=== PATIENT | female | born 1975 | race American Indian/Alaskan Native ===

== ENCOUNTER 2017-01-17 21:38 | Inpatient (IN) | payer OTHER ==
[2017-01-17 23:07] LABS: Basophils % (Auto) 0.5 % (0.0-1.8); Eosinophils % (Auto) 2.9 % (0.0-4.3); Hematocrit 37.7 % (30.3-42.9); Mean Corpuscular HGB Conc 32 % (30-34); Mean Corpuscular Hemoglobin 30 pg (28-32); Mean Corpuscular Volume 94 fl (79-97); Platelet Count 257 K/mm3 (140-440); Red Blood Count 4.03 M/mm3 (3.65-5.03); Red Cell Distribution Width 17.2 % (13.2-15.2); White Blood Count 10.3 K/mm3 (4.5-11.0)
[2017-01-17] MEDS ORDERED: NACL 0.9% 1000 ML 1,000 ML ONE (23:14)
[2017-01-17] MEDS ORDERED: XYLOCAINE 1%/ EPI 1:100,000 INFILTRATI ONE (23:17)
[2017-01-17] MEDS ORDERED: ZOFRAN IV ONE (23:17)
[2017-01-17] MEDS ORDERED: DILAUDID IV ONE (23:17)
--- NOTE | 2017-01-17 23:22 | Emergency Department Report ---
HPI - General Chief Complaint: Chest Pain Time Seen by Provider: 01/17/17 23:10 - HPI HPI: Room 18 The patient is a 41-year-old female presenting with a chief complaint of chest pain and shortness of breath. The patient states yesterday she had the sudden onset of left chest pain and difficulty breathing. The patient decided today to come to the ED for evaluation. The patient had a similar episode one year ago when she had a spontaneous pneumothorax and was admitted to this Hospital Location: Left chest Duration: Constant since yesterday Quality: Pain Severity: Moderate Modifying factors: [see above] Context: [see above] Mode of transportation: [not driving] ED Past Medical Hx - Past Medical History Additional medical history: Spontaneous pneumothorax - Surgical History Past Surgical History?: No Additional Surgical History: Chest tube for spontaneous pneumothorax - Family History Family history: no significant - Social History Smoking Status: Former Smoker Substance Use Type: None - Medications Home Medications: Home Medications Medication Instructions Recorded Confirmed Last Taken Type No Known Home Medications [No 11/28/15 11/28/15 Unknown History Reported Home Medications] ED Review of Systems ROS: Stated complaint: CHEST PAIN Other details as noted in HPI Comment: All other systems reviewed and negative Constitutional: denies: chills, fever Eyes: denies: eye pain, eye discharge, vision change ENT: denies: ear pain, throat pain Respiratory: shortness of breath Cardiovascular: chest pain Endocrine: no symptoms reported Gastrointestinal: denies: abdominal pain, nausea, diarrhea Genitourinary: denies: urgency, dysuria, discharge Musculoskeletal: denies: back pain, joint swelling, arthralgia Skin: denies: rash, lesions Neurological: denies: headache, weakness, paresthesias Psychiatric: denies: anxiety, depression Hematological/Lymphatic: denies: easy bleeding, easy bruising Physical Exam - Physical Exam Vital Signs: Vital Signs 01/17/17 22:30 Temperature 98.1 F Pulse Rate 86 Respiratory 18 Rate Blood Pressure 107/65 O2 Sat by Pulse 100 Oximetry Physical Exam: GENERAL: The patient is well-developed well-nourished female lying on stretcher appearing to be in moderate discomfort. [] HEENT: Normocephalic. Atraumatic. Extraocular motions are intact. Patient has moist mucous membranes. NECK: Supple. Trachea midline CHEST/LUNGS: Clear to auscultation. HEART/CARDIOVASCULAR: Regular. There is no tachycardia. There is no gallop rub or murmur. ABDOMEN: Abdomen is soft, nontender. Patient has normal bowel sounds. There is no abdominal distention. SKIN: There is no rash. There is no edema. There is no diaphoresis. NEURO: The patient is awake, alert, and oriented. The patient is cooperative. The patient has normal speech MUSCULOSKELETAL: There is no evidence of acute injury. ED Course Vital Signs 01/17/17 22:30 Temperature 98.1 F Pulse Rate 86 Respiratory 18 Rate Blood Pressure 107/65 O2 Sat by Pulse 100 Oximetry - Chest Tube Chest Tube Location: forth interspace Size of Mexican Tube (cm): 8 (Heimlich) Chest Tube Procedure: betadine prep Anesthesia: 1% Lidocaine w/ Epi Volume Anesthetic (ccs): 12 [place] of Air [place]: Yes Number of Attempts: 1 Tube Sutured to Skin: Yes Post Procedure CXR?: Yes ED Medical Decision Making - Lab Data Result diagrams: 01/17/17 22:43 01/17/17 22:43 Laboratory Tests 01/17/17 01/17/17 22:43 22:43 WBC 10.3 RBC 4.03 Hgb 12.0 Hct 37.7 MCV 94 MCH 30 MCHC 32 RDW 17.2 H Plt Count 257 Lymph % (Auto) 19.3 Hyde % (Auto) 6.2 Eos % (Auto) 2.9 Baso % (Auto) 0.5 Lymph # 2.0 Hyde # 0.6 Eos # 0.3 Baso # 0.1 Seg Neutrophils % 71.1 H Seg Neutrophils # 7.3 Sodium 140 Potassium 3.6 Chloride 102.5 Carbon Dioxide 20 L Anion Gap 21 BUN 10 Creatinine 0.6 L Estimated GFR > 60 BUN/Creatinine Ratio 16.66 Glucose 82 Calcium 9.1 Troponin T < 0.010 - Radiology Data Radiology results: image reviewed (chest x-ray #1, chest x-ray #2) interpreted by me: Chest x-ray-large left pneumothorax Chest x-ray #2-Heimlich in place. Left Pneumothorax resolved/resolving - Differential Diagnosis spontaneous pneumothorax Critical care attestation.: If time is entered above; I have spent that time in minutes in the direct care of this critically ill patient, excluding procedure time. ED Disposition Clinical Impression: Spontaneous pneumothorax, Pneumothorax, left, Left sided chest pain Disposition: DC-[id number] OP ADMIT IP TO THIS HOSP Is pt being admited?: Yes Does the pt Need Aspirin: No Condition: Fair Instructions: Chest Pain (ED) Time of Disposition: 00:25 (hospitalist paged)
[2017-01-17 23:27] LABS: BUN/Creatinine Ratio 16.66; Blood Urea Nitrogen 10 mg/dL (7-17); Calcium 9.1 mg/dL (8.4-10.2); Carbon Dioxide 20 mmol/L (22-30); Glucose 82 mg/dL (65-100)
[2017-01-17 23:28] LABS: Anion Gap 21 mmol/L; Chloride 102.5 mmol/L (98-107); Potassium 3.6 mmol/L (3.6-5.0); Sodium 140 mmol/L (137-145)
[2017-01-17] MEDS ORDERED: VERSED IV ONE (23:47)
[2017-01-18] MEDS ORDERED: DILAUDID IV ONE (00:13)
[2017-01-18] MEDS ORDERED: BENADRYL IV PRN (00:23)
[2017-01-18] MEDS ORDERED: SUBLIMAZE IV PRN (00:23)
[2017-01-18] MEDS ORDERED: TORADOL IV PRN (00:23)
[2017-01-18] MEDS ORDERED: NACL 0.9% 1000 ML 1,000 ML IV ONE (01:00)
[2017-01-18] MEDS ORDERED: DULCOLAX PR PRN (01:39)
[2017-01-18] MEDS ORDERED: MILK OF MAGNESIA PO PRN (01:39)
[2017-01-18] MEDS ORDERED: TYLENOL PO PRN (01:39)
--- NOTE | 2017-01-18 01:39 | History and Physical Report ---
History of Present Illness Date of examination: 01/18/17 History of present illness: This is a 40-year-old woman with no medical history comes to the emergency room complaining of left-sided pleuritic chest pain for 2 days. She describes the pain as sharp, constant, intensity 10/10, no radiation, worse with movement, better with pain medication given in the emergency room. Also complaining of shortness of breath. She had a similar presentation a year ago with pneumothorax Review of systems Constitutional: no fever, no chills, no weight loss Ears, eyes, nose, mouth and throat: no nasal congestion, no nasal discharge, no sinus pressure, no vision change, no red eye. Neck: No neck pain or rigidity. Cardiovascular: no orthopnea, no palpitations, no leg swelling Respiratory: No cough, no congestion, no wheezing Gastrointestinal: abdominal pain, hematochezia, no nausea, no vomiting Genitourinary : no dysuria, frequency , no hematuria Musculoskeletal: no joint swelling or muscle ache Integumentary: no rash, no pruritis Neurological: no parathesias, no numbness, no focal weakness Endocrine: no cold or heat intolerance, no polyuria or polydipsia Hematologic/Lymphatic: no easy bruising, no easy bleeding, no gland swelling Allergic/Immunologic: no urticaria, no angioedema. PAST MEDICAL HISTORY: None PAST SURGICAL HISTORY: None SOCIAL HISTORY: Quit smoking no alcohol or drugs FAMILY HISTORY: Hypertension Medications and Allergies Allergies Allergy/AdvReac Type Severity Reaction Status Date / Time etomidate [From Amidate] AdvReac Anaphylaxis Verified 11/28/15 20:52 Home Medications Medication Instructions Recorded Confirmed Last Taken Type No Known Home Medications [No 11/28/15 11/28/15 Unknown History Reported Home Medications] Active Meds: Active Medications Diphenhydramine HCl (Benadryl) 50 mg IV ONCE PRN PRN Reason: Pain Fentanyl (Sublimaze) 100 mcg IV ONCE PRN PRN Reason: Pain Last Admin: 01/18/17 00:40 Dose: 100 mcg Ketorolac Tromethamine (Toradol) 30 mg IV ONCE PRN PRN Reason: Pain Stop: 01/23/17 00:22 Last Admin: 01/18/17 00:35 Dose: 30 mg Exam - Physical Exam Narrative exam: Gen. appearance: Patient lying in bed, no apparent distress HEENT: Normocephalic, atraumatic, pupils equally round and reactive to light, extraocular movement intact, and no sclericterus,. No JVD or thyromegaly or nodule,neck supple, no carotid bruit ,mucous membranes moist, no exudate or erythema Heart: S1, S2, regular rate and rhythm Lungs: Clear to auscultation bilaterally, breathing comfortable Abdomen: Positive bowel sounds, nontender, nondistended, no organomegaly Extremity: No edema, cyanosis, clubbing Skin: No rash, nodules, warm, dry Neuro: Oriented 3, cranial nerves II-12 intact, speech is fluent, motor and sensory intact - Constitutional Vitals: Temp Pulse Resp BP Pulse Ox 98.1 F 66 16 105/63 99 01/17/17 22:30 01/18/17 01:15 01/18/17 01:15 01/18/17 01:15 01/18/17 01:15 Results - Labs CBC & Chem 7: 01/17/17 22:43 01/17/17 22:43 Labs: Abnormal lab results 01/17/17 01/17/17 Range/Units 22:43 22:43 RDW 17.2 H (13.2-15.2) % Seg Neutrophils % 71.1 H (40.0-70.0) % Carbon Dioxide 20 L (22-30) mmol/L Creatinine 0.6 L (0.7-1.2) mg/dL Assessment and Plan Assessment Large left pneumothorax, status post chest tube placement Plan Admit to medicine Consult critical care start IV morphine and DVT prophylaxis
[2017-01-18] MEDS: MORPHINE IV PRN ×3 (04:05→13:57)
[2017-01-18] MEDS: ZOFRAN IV PRN ×2 (04:05→22:06)
--- NOTE | 2017-01-18 05:58 | Admit Criteria Form ---
<MARIAH MCRAE - Last Filed: 01/18/17 05:56> Admission Criteria Documentation: PNEUMOTHORAX Clinical Indications for Admission to Inpatient Care (Place 'X' for any and all applicable criteria): Admission to inpatient status for two mid-nights or more is indicated for ANY ONE of the following (1),(2): [ ]I. Pneumothorax caused by associated lung disease (eg, COPD, cystic fibrosis, lung cancer, AIDS)(6): [ ]II. Recurrent episode of pneumothorax9 [ ]III. Traumatic pneumothorax (10)(11)(12) [ ]IV. Tension pneumothorax [ ]V. Hypotension [ ]. Respiratory distress [ ]VII. Pneumothorax exacerbating significant comorbidity (eg, heart failure) [ X]VIII. Inpatient admission required rather than observation care (see Pneumothorax: Observation Care guideline as appropriate) because of 1 or more of the following (13)(14) [X ]1) Symptomatic pneumothorax (eg, dyspnea, Tachypnea ) insufficiently responsive to outpatient or observation care treatment (eg, needle aspiration) [ ]2) Infection identified (eg, pneumonia) that requires inpatient management [ ]3) Severe pain requiring acute inpatient management [ ]4) Supplemental oxygen or respiratory treatments for over 24 hours that are performable only in acute inpatient setting Other significant finding or clinical cond judged not to be within the scope of observation care [ ]5) Chest tube placement with active evacuation (eg, suction, drainage) [ ]6) Epidural analgesia [ ]7) Other condition, treatment, or monitoring requiring inpatient admission Extended stay beyond goal length of stay may be needed for (24) [ ]a) Comorbid pneumonia, or acute exacerbation of COPD [ ]b) Acute respiratory failure (eg, pulmonary collapse) [ ]c) Pneumothorax associated with trauma (eg, multiple fractured ribs) [ ]d) Persistent air leak(2)(5)(8)(30) [ ]e) Tension pneumothorax [ ]f) Pulmonary edema The original [email or web address] content created by [employer] has been revised. The portions of the content which have been revised are identified through the use of italic text or in bold, and [facility] has neither reviewed nor approved the modified material. All other unmodified content is copyright [employer] [facility]. Please see references footnoted in the original [employer] [facility] edition 2017 Admission Criteria Met: Yes <MILES COSBY - Last Filed: 01/19/17 06:08> Admission Criteria Documentation: [x] 7)Other condition, treatment, or monitoring requiring inpatient admission
[2017-01-18] MEDS ORDERED: MORPHINE IV ONE (06:25)
[2017-01-18] MEDS ORDERED: MORPHINE ONE (06:26)
--- NOTE | 2017-01-18 10:03 | XRay Report ---
ROUTINE CHEST, TWO VIEWS: HISTORY: chest pain. Compared to 12/01/15. A large left pneumothorax extubated at 50% is identified. This probably represents a tension pneumothorax. The right lung is clear. Normal heart and mediastinal structures. IMPRESSION: Large left pneumothorax. These findings were noted by the emergency department physician at 11:05 PM.
--- NOTE | 2017-01-18 10:04 | XRay Report ---
AP CHEST: HISTORY: Left pneumothorax, chest tube placement A left Heimlich chest tube has been inserted which terminates near the left apex. No residual left pneumothorax is detected. There is partial atelectasis in the left lower lobe and lingula, otherwise, the lungs are clear. Heart size is within normal limits. IMPRESSION: Left chest tube placement. No significant residual left pneumothorax is appreciated.
[2017-01-18] MEDS: LOVENOX SUB-Q SCH (10:12)
[2017-01-18] MEDS ORDERED: PERCOCET 5/325 PO PRN (15:48)
--- NOTE | 2017-01-18 16:36 | Event Note ---
Date: 01/18/17 pt seen and examined. Will continue current mx as dictated in H and P. will change pain meds to dilaudid and po percocet. pulmonary eval pending, repeat CXR.
[2017-01-18] MEDS: DILAUDID IV PRN (19:26)
--- NOTE | 2017-01-18 21:01 | Event Note ---
Date: 01/18/[address] LOVE Thank you for asking us to participate in the care of this patient. Full consultation follow. This is 41 year old female came to the emergency room with left sided chest pain, cough and shortness of breath. Patients chest xray showed large left Pneumothorax. Left chest tube inserted.Left lung is fully expanded. Patient resting on 2 litres O2.O2 saturation 97%. No acute respiratory distress. Patient has history of Pneumothorax left side one year ago. Patient smokes cigaretts since year 1999. According to the patient,she smokes less than half a pack. She says she still smoking now and then. Counselled her not to smoke.Denies alcohol or drug abuse. Works in [employer]. Not . No children. Allergic to etomidate. IMMPRESSION; 1. LARGE LEFT PNEUMOTHORAX. 2. S/P CHEST TUBE PLACEMENT 3. TOBACO USE DISORDER. PLAN; 1. CONTINUE LEFT CHEST TUBE WITH WALL SUCTION. 2. ALPHA 1 ANTITRYPSIN LEVEL 3. SINCE IT IS RECURRENT PNEUMOTHORAX RECOMMEND CATSCAN OF CHEST. 4. SINCEIT IS RECURRENT PNEUMOTHORAX, CONSULT THORACIC SURGERY. 5. CONTINUE O2 SUPPLEMENTATION. 6. ABGS ON o2.
--- NOTE | 2017-01-19 00:06 | XRay Report ---
FINAL REPORT PROCEDURE: Chest. TECHNIQUE: Portable AP view. HISTORY: Pneumothorax. COMPARISON: No prior studies are available for comparison. FINDINGS: The patient is rotated slightly to the right. The heart and mediastinum appear normal. The right lung is clear and well expanded. There is a small caliber thoracostomy tube on the left side that terminates near the lung apex. There is no visible pneumothorax. There is some streaky opacity at the left lung base which may represent subsegmental atelectasis. There are no definite pleural effusions. The soft tissues and regional skeleton are unremarkable. IMPRESSION: Left thoracostomy catheter without evidence of a pneumothorax. Probable subsegmental atelectasis in the left lung base.
[2017-01-19] MEDS: DILAUDID IV PRN ×3 (01:49→10:11)
[2017-01-19 05:51] LABS: Basophils % (Auto) 0.2 % (0.0-1.8); Eosinophils % (Auto) 2.1 % (0.0-4.3); Hematocrit 33.1 % (30.3-42.9); Hemoglobin 10.9 gm/dl (10.1-14.3); Mean Corpuscular HGB Conc 33 % (30-34); Mean Corpuscular Hemoglobin 29 pg (28-32); Mean Corpuscular Volume 90 fl (79-97); Platelet Count 229 K/mm3 (140-440); Red Blood Count 3.69 M/mm3 (3.65-5.03); Red Cell Distribution Width 16.2 % (13.2-15.2); White Blood Count 8.8 K/mm3 (4.5-11.0)
[2017-01-19 06:11] LABS: Anion Gap 15 mmol/L; Blood Urea Nitrogen 5 mg/dL (7-17); Calcium 8.3 mg/dL (8.4-10.2); Carbon Dioxide 25 mmol/L (22-30); Chloride 102.5 mmol/L (98-107); Glucose 100 mg/dL (65-100); Potassium 3.7 mmol/L (3.6-5.0); Sodium 139 mmol/L (137-145)
[2017-01-19] MEDS: ZOFRAN IV PRN ×3 (07:03→20:35)
[2017-01-19] MEDS: LOVENOX SUB-Q SCH (10:11)
--- NOTE | 2017-01-19 13:20 | Progress Note ---
Assessment and Plan This is 41 year old female came to the emergency room with left sided chest pain, cough and shortness of breath. Patients chest xray showed large left Pneumothorax. Left chest tube inserted.Left lung is now fully expanded. LARGE LEFT PNEUMOTHORAX. - s/p chest tube placement with wall suction - ordered alpha 1 antitrypsin level - CT chest ordered, CT surgery consult on Friday TOBACO USE DISORDER. - counselled for cessation Subjective Date of service: 01/19/17 Interval history: Pt seen and examined c/o pain at the chest tube site Objective - Constitutional Vitals: Vital Signs - 12hr 01/19/17 01/19/17 01/19/17 05:57 08:17 09:08 Temperature 99.1 F 98.7 F Pulse Rate 62 64 73 Respiratory 20 16 Rate Blood Pressure 101/57 118/61 O2 Sat by Pulse 97 97 Oximetry 01/19/17 10:11 Temperature Pulse Rate Respiratory 22 Rate Blood Pressure O2 Sat by Pulse Oximetry General appearance: Present: mild distress, well-nourished - EENT Eyes: PERRL, EOM intact ENT: hearing intact, clear oral mucosa Ears: bilateral: normal - Neck Neck: supple, normal ROM - Respiratory Respiratory effort: normal Respiratory: bilateral: CTA (left chest tube on place) - Cardiovascular Rhythm: regular Heart Sounds: Present: S1 & S2. Absent: gallop, rub Extremities: pulses intact, No edema, normal color, Full ROM - Gastrointestinal General gastrointestinal: Present: soft, non-tender, non-distended, normal bowel sounds - Integumentary Integumentary: clear, warm, dry - Musculoskeletal Musculoskeletal: 1, strength equal bilaterally - Neurologic Neurologic: moves all extremities - Psychiatric Psychiatric: memory intact, appropriate mood/affect, intact judgment & insight - Labs CBC & Chem 7: 01/19/17 04:18 01/19/17 04:18 Labs: Abnormal lab results 01/19/17 01/19/17 Range/Units 04:18 04:18 RDW 16.2 H (13.2-15.2) % Seg Neutrophils % 77.7 H (40.0-70.0) % BUN 5 L (7-17) mg/dL Creatinine 0.5 L (0.7-1.2) mg/dL Calcium 8.3 L (8.4-10.2) mg/dL
[2017-01-19] MEDS: MORPHINE IV PRN ×3 (14:23→20:35)
[2017-01-19] MEDS ORDERED: NACL ONE (15:06)
--- NOTE | 2017-01-19 17:57 | Cat Scan Report ---
FINAL REPORT PROCEDURE: CT CHEST W CON TECHNIQUE: Computerized axial tomography of the chest was performed during the IV injection of iodinated nonionic contrast. HISTORY: pneumothorax COMPARISON: No prior studies are available for comparison. TECHNICAL QUALITY: Satisfactory. FINDINGS: Pulmonary outflow tract, right and left main pulmonary arteries and their proximal branches: No focal abnormalities are seen. Pericardium: No evidence of pericardial effusion. Thoracic aorta: No evidence of aneurysmal dilatation or dissection. Coronary arteries: Are unremarkable. Mediastinum and hilar regions: Nonspecific subcentimeter lymph nodes are visualized. No pathologically enlarged lymph nodes or masses are identified. There is a 1.6 x 2.2 centimeter heterogeneous low-density nodule in the left lobe of the thyroid gland posteriorly. Well-defined low-density nodules seen in the right lobe of the thyroid gland measuring 6 millimeters. Lung Argueta: Small caliber left chest tube is in place directed superiorly. There is no pneumothorax. Small amount of linear atelectasis present in both bases. Mild emphysematous changes are visualized bilaterally. Upper abdomen: No acute bony abnormalities are identified. There is a small amount of subcutaneous emphysema along the left lateral chest wall laterally and posteriorly. IMPRESSION: Small caliber left chest tube in place directed superiorly laterally. No evidence of pneumothorax. Small amount of subcutaneous emphysema is present. Small amount of linear atelectasis seen in both bases. Mild emphysematous changes are visualized bilaterally.
[2017-01-19 21:02] LABS: ISTAT Base Excess 6; ISTAT HCO3 30.3; ISTAT PCO2 44.3 (35-45); ISTAT PH 7.443 (7.35-7.45); ISTAT PO2 145 (80-105); ISTAT SO2 99; ISTAT TCO2 32
[2017-01-19] MEDS ORDERED: BENADRYL IV ONE (22:55)
--- NOTE | 2017-01-19 23:12 | Progress Note ---
Assessment and Plan Patient alert, awake. Resting on 3 litres O2.O2 saturation 100%. No complaint of shortness of breath. Complaining pain at chest tube insertion site. - Patient Problems (1) Left sided chest pain Current Visit: Yes Status: Acute Plan to address problem: Likly from chest tube insertion site at this time. (2) Pneumothorax, left Current Visit: Yes Status: Acute Plan to address problem: S/P Left chest tube placement and expansion of left lung. Recurrent pneumothorax. Recommend to consult thoracic surgery. (3) S/P chest tube placement Current Visit: No Status: Acute Plan to address problem: SiP right chest tube placement. CT of chest reported complete expansion of left lung. Subjective Date of service: 01/19/17 Interval history: Patient alert, awake. Resting on 3 litres O2.O2 saturation 100%. No complaint of shortness of breath. Complaining pain at chest tube insertion site. Objective Vital Signs - 12hr 01/19/17 01/19/17 01/19/17 13:30 14:23 17:13 Temperature 98.2 F Pulse Rate 71 Respiratory 18 22 20 Rate Blood Pressure 131/66 O2 Sat by Pulse 100 Oximetry 01/19/17 01/19/17 01/19/17 20:30 20:36 22:00 Temperature 98.1 F Pulse Rate 76 Respiratory 16 Rate Blood Pressure 116/69 O2 Sat by Pulse 100 100 96 Oximetry Constitutional: no acute distress, alert Eyes: non-icteric ENT: oropharynx moist Neck: supple, no lymphadenopathy Ascultation: Bilateral: clear Cardiovascular: regular rate and rhythm Gastrointestinal: normoactive bowel sounds, soft, non-tender Integumentary: normal Extremities: no cyanosis, no edema Neurologic: normal mental status, non-focal exam, pupils equal and round, CN II- XII normal Psychiatric: mood appropriate CBC and BMP: 01/19/17 04:18 01/19/17 04:18 ABG, PT/INR, D-dimer: ABG POC ABG pH 7.443 (7.35-7.45) 01/19/17 20:56 POC ABG pCO2 44.3 (35-45) 01/19/17 20:56 POC ABG pO2 145 (80-105) H 01/19/17 20:56 POC ABG HCO3 30.3 01/19/17 20:56 POC ABG Total CO2 32 01/19/17 20:56 POC ABG O2 Sat 99 01/19/17 20:56 Abnormal lab findings: Abnormal Labs 01/19/17 01/19/17 01/19/17 04:18 04:18 20:56 RDW 16.2 H Seg Neutrophils % 77.7 H POC ABG pO2 145 H BUN 5 L Creatinine 0.5 L Calcium 8.[address] scan - chest: report reviewed (Small caliber chest tube present on left side. No pneumothorax. Small S/C emphysema.)
[2017-01-20] MEDS: MORPHINE IV PRN ×5 (01:36→21:36)
[2017-01-20] MEDS: LOVENOX SUB-Q SCH (10:55)
--- NOTE | 2017-01-20 12:55 | Progress Note ---
Assessment and Plan This is 41 year old female came to the emergency room with left sided chest pain, cough and shortness of breath. Patients chest xray showed large left Pneumothorax. Left chest tube inserted. Left lung is now fully expanded. LARGE LEFT PNEUMOTHORAX. - s/p chest tube placement with wall suction - ordered alpha 1 antitrypsin level - CT chest showed no pneumothorax, CT surgery consulted - OR in am for left VATS,wedge resections and pleurectomy by CT surgery TOBACO USE DISORDER. - counselled for cessation Thyroid nodule - normal T4, TSH - nodules are stable since 2016 - will need outpt f/u DVT Px - SCD on place Subjective Date of service: 01/20/17 Interval history: Pt seen and examined c/o pain at the chest tube site Objective - Exam Narrative Exam: General appearance: Present: mild distress, well-nourished - EENT Eyes: PERRL, EOM intact ENT: hearing intact, clear oral mucosa Ears: bilateral: normal - Neck Neck: supple, normal ROM - Respiratory Respiratory effort: normal Respiratory: bilateral: CTA (left chest tube on place) - Cardiovascular Rhythm: regular Heart Sounds: Present: S1 & S2. Absent: gallop, rub Extremities: pulses intact, No edema, normal color, Full ROM - Gastrointestinal General gastrointestinal: Present: soft, non-tender, non-distended, normal bowel sounds - Integumentary Integumentary: clear, warm, dry - Musculoskeletal Musculoskeletal: 1, strength equal bilaterally - Neurologic Neurologic: moves all extremities - Psychiatric Psychiatric: memory intact, appropriate mood/affect, intact judgment & insight - Constitutional Vitals: Vital Signs - 12hr 01/20/17 01/20/17 01/20/17 04:15 08:00 09:44 Temperature 98.0 F 98.3 F Pulse Rate 70 59 L Respiratory 18 18 Rate Blood Pressure 152/81 114/66 O2 Sat by Pulse 100 99 99 Oximetry 01/20/17 01/20/17 09:46 12:38 Temperature Pulse Rate 59 L Respiratory 22 Rate Blood Pressure O2 Sat by Pulse Oximetry - Labs CBC & Chem 7: 01/19/17 04:18 01/19/17 04:18 Labs: Abnormal lab results 01/19/17 Range/Units 20:56 POC ABG pO2 145 H (80-105)
--- NOTE | 2017-01-20 13:53 | Consultation ---
History of Present Illness Consult date: 01/20/17 Reason for consult: other (recurrent left pneumothorax) Chief complaint: chest pain and shortness of breath. - History of present illness History of present illness: 41 year old female ex smoker with second spontaneous PTX on left side, initially treated with left CT one year ago and managed conservatively, did well and returns with left PTX. Past History Past Medical History: No medical history Past Surgical History: Other (hx of left chest tube.) Social history: smoking (quit smoking one year ago) Family history: no significant family history Medications and Allergies Allergies Allergy/AdvReac Type Severity Reaction Status Date / Time etomidate [From Amidate] AdvReac Anaphylaxis Verified 11/28/15 20:52 Home Medications Medication Instructions Recorded Confirmed Last Taken Type No Known Home Medications [No 11/28/15 01/19/17 Unknown History Reported Home Medications] Active Meds: Active Medications Acetaminophen (Tylenol) 650 mg PO Q4H PRN PRN Reason: Pain MILD(1-3)/Fever >100.5/PURI Bisacodyl (Dulcolax) 10 mg MA QDAY PRN PRN Reason: Constipation unrelieved by MOM Diphenhydramine HCl (Benadryl) 25 mg IV Q8H PRN PRN Reason: Itching Enoxaparin Sodium (Lovenox) 40 mg SUB-Q QDAY SHAILA Last Admin: 01/20/17 10:55 Dose: 40 mg Magnesium Hydroxide (Milk Of Magnesia) 30 ml PO Q4H PRN PRN Reason: Constipation Morphine Sulfate (Morphine) 2 mg IV Q3H PRN PRN Reason: Pain, Moderate (4-6) Last Admin: 01/20/17 12:38 Dose: 2 mg Ondansetron HCl (Zofran) 4 mg IV Q8H PRN PRN Reason: N/V unrelieved by Reglan Last Admin: 01/19/17 20:35 Dose: 4 mg Tramadol HCl (Ultram) 50 mg PO Q6H PRN PRN Reason: Pain, Moderate (4-6) Review of Systems - Constitutional other (shortness of breat and chest pain) Exam Vital Signs Temp Pulse Resp BP Pulse Ox 98.1 F 86 18 107/65 100 01/17/17 22:30 01/17/17 22:30 01/17/17 22:30 01/17/17 22:30 01/17/17 22:30 - General physical appearance Positive: no distress - Eyes Positive: PERRL, normal occular movement - ENT Positive: normal pinna, normal nares, normal mucosa, no hearing loss, no congestion - Neck Positive: no masses, no bruits, trachea midline, no venous distension - Respiratory Positive: normal expansion, normal respiratory effort, clear to auscultation, other (Heimlich CT in place left chest.) - Cardiovascular Rhythm: regular - Extremities Extremities: no ischemia Peripheral Pulses: within normal limits - Breasts Breasts: deferred - Abdomen Abdomen: Present: soft, bowel sounds normal. Absent: tender, distended - Neurologic Neurologic: alert and oriented to time, place and person, motor strength and sensation are grossly intact - Musculoskeletal normal gait - Psychiatric Psychiatric: appropriate mood/affect, intact judgment & insight Results - Labs 01/19/17 04:18 01/19/17 04:18 Abnormal lab results 01/19/17 Range/Units 20:56 POC ABG pO2 145 H (80-105) Assessment and Plan Second spontaneous PTX left chest, Heimlich CT in place, will take to OR in am for left VATS,wedge resections and pleurectomy.
[2017-01-20] MEDS ORDERED: ANCEF/STERILE WATER 2 GM/20 ML IV NR (14:00)
[2017-01-20] MEDS: ULTRAM PO PRN ×2 (14:00→20:26)
--- NOTE | 2017-01-20 15:59 | Anesthesia Consultation ---
Anesthesia Consult and Med Hx Date of service: 01/20/17 - Airway Anesthetic Teeth Evaluation: Good (some missing teeth) ROM Head & Neck: Adequate Mental/Hyoid Distance: Adequate Mallampati Class: Class II Intubation Access Assessment: Probably Good - Pre-Operative Health Status ASA Pre-Surgery Classification: ASA2 Proposed Anesthetic Plan: General (double lumen tube) - Pulmonary Hx Smoking: Yes (06/26 p/d x 10 years) Hx Respiratory Symptoms: Yes (h/o left spontaneous pneumothorax 16', CT in place ) - Central Nervous System Hx Psychiatric Problems: No
--- NOTE | 2017-01-20 19:17 | Progress Note ---
Assessment and Plan Patient alert, awake. Resting on 3 litres O2.O2 saturation 97%. No complaint of shortness of breath. Complaining slight pain at chest tube insertion site. Patient scheduled for VATs and pleurectomy by Dr Giron tomorrow. - Patient Problems (1) Left sided chest pain Current Visit: Yes Status: Acute Plan to address problem: Likly from chest tube insertion site at this time. (2) Pneumothorax, left Current Visit: Yes Status: Acute Plan to address problem: S/P Left chest tube placement and expansion of left lung. Recurrent pneumothorax. Thoracic surgery consulted.. (3) S/P chest tube placement Current Visit: No Status: Acute Plan to address problem: SiP right chest tube placement. CT of chest reported complete expansion of left lung. Subjective Date of service: 01/20/17 Interval history: Patient alert, awake. Resting on 3 litres O2.O2 saturation 97%. No complaint of shortness of breath. Complaining slight pain at chest tube insertion site. Patient going for VATS and Pleurectomy by Dr. Giron tomorrow. Objective Vital Signs - 12hr 01/20/17 01/20/17 01/20/17 08:00 09:44 09:46 Temperature 98.3 F Pulse Rate 59 L 59 L Respiratory 18 Rate Blood Pressure 114/66 O2 Sat by Pulse 99 99 Oximetry 01/20/17 01/20/17 01/20/17 10:00 12:00 12:38 Temperature 98.2 F Pulse Rate 68 Respiratory 22 18 22 Rate Blood Pressure 125/73 O2 Sat by Pulse 98 98 Oximetry 01/20/17 01/20/17 01/20/17 14:00 17:00 17:09 Temperature 98.0 F Pulse Rate 63 Respiratory 20 18 20 Rate Blood Pressure 114/70 O2 Sat by Pulse 97 Oximetry Constitutional: no acute distress, alert Eyes: non-icteric ENT: oropharynx moist Neck: supple, no lymphadenopathy Ascultation: Bilateral: clear Cardiovascular: regular rate and rhythm Gastrointestinal: normoactive bowel sounds, soft, non-tender Integumentary: normal Extremities: no cyanosis, no edema Neurologic: normal mental status, non-focal exam, pupils equal and round, CN II- XII normal Psychiatric: mood appropriate CBC and BMP: 01/19/17 04:18 01/19/17 04:18 ABG, PT/INR, D-dimer: ABG POC ABG pH 7.443 (7.35-7.45) 01/19/17 20:56 POC ABG pCO2 44.3 (35-45) 01/19/17 20:56 POC ABG pO2 145 (80-105) H 01/19/17 20:56 POC ABG HCO3 30.3 01/19/17 20:56 POC ABG Total CO2 32 01/19/17 20:56 POC ABG O2 Sat 99 01/19/17 20:56 Abnormal lab findings: Abnormal Labs 01/19/17 01/19/17 01/19/17 04:18 04:18 20:56 RDW 16.2 H Seg Neutrophils % 77.7 H POC ABG pO2 145 H BUN 5 L Creatinine 0.5 L Calcium 8.3 L
[2017-01-21] MEDS: MORPHINE IV PRN ×4 (01:57→22:36)
[2017-01-21 05:34] LABS: Basophils % (Auto) 0.6 % (0.0-1.8); Eosinophils % (Auto) 3.9 % (0.0-4.3); Hematocrit 31.9 % (30.3-42.9); Hemoglobin 10.6 gm/dl (10.1-14.3); Mean Corpuscular HGB Conc 33 % (30-34); Mean Corpuscular Hemoglobin 30 pg (28-32); Mean Corpuscular Volume 90 fl (79-97); Platelet Count 237 K/mm3 (140-440); Red Blood Count 3.56 M/mm3 (3.65-5.03); Red Cell Distribution Width 15.8 % (13.2-15.2)
[2017-01-21 05:59] LABS: Anion Gap 18 mmol/L; Blood Urea Nitrogen 6 mg/dL (7-17); Calcium 8.4 mg/dL (8.4-10.2); Carbon Dioxide 24 mmol/L (22-30); Chloride 100.8 mmol/L (98-107); Glucose 76 mg/dL (65-100); Potassium 3.5 mmol/L (3.6-5.0); Sodium 139 mmol/L (137-145)
[2017-01-21] MEDS ORDERED: VERSED IV NR (07:00)
[2017-01-21] MEDS ORDERED: PEPCID IV NR (07:00)
[2017-01-21] MEDS: KCL 10MEQ/100ML 10 MEQ/100 ML BAG IV SCH ×2 (10:54→11:00)
[2017-01-21] MEDS ORDERED: MARCAINE 0.5% INFILTRATI ONE (10:55)
[2017-01-21] MEDS ORDERED: NACL 0.9% IR ONE ×2 (10:56)
[2017-01-21] MEDS ORDERED: XYLOCAINE 1% 20 mL INFILTRATI ONE (10:56)
[2017-01-21] MEDS: LOVENOX SUB-Q SCH (11:24)
[2017-01-21] MEDS ORDERED: ZOFRAN ONE ×2 (12:00→13:33)
[2017-01-21] MEDS ORDERED: NEO SYNEPHRINE/NS Syringe(OR USE) IV ONE (12:00)
[2017-01-21] MEDS ORDERED: DIPRIVAN 10 MG/ML IV ONE (12:21)
[2017-01-21] MEDS ORDERED: XYLOCAINE MPF 2% ONE (12:22)
[2017-01-21] MEDS ORDERED: LACTATED RINGERS 1,000 ML ONE (12:22)
[2017-01-21] MEDS ORDERED: ZEMURON IV ONE (12:22)
[2017-01-21] MEDS ORDERED: SUBLIMAZE ONE (12:24)
[2017-01-21] MEDS: LACTATED RINGERS 1,000 ML IV SCH ×2 (12:25→18:16)
[2017-01-21] MEDS ORDERED: ANCEF/STERILE WATER 2 GM/20 ML IV NR (13:00)
[2017-01-21] MEDS ORDERED: XYLOCAINE 1% 20 mL ONE (13:06)
[2017-01-21] MEDS ORDERED: MARCAINE 0.5% 30 ML INFILTRATI ONE (13:06)
[2017-01-21] MEDS ORDERED: DECADRON ONE (13:33)
[2017-01-21] MEDS ORDERED: ROBINUL ONE ×2 (13:33)
[2017-01-21] MEDS ORDERED: BLOXIVERZ ONE (13:33)
[2017-01-21] MEDS ORDERED: GELFOAM TP ONE ×2 (14:02→14:07)
--- NOTE | 2017-01-21 14:21 | Progress Note ---
Assessment and Plan Assessment and plan: Patient is a 41-year-old woman history of hypothyroidism, thyroid nodule since 2016 and prior pneumothorax a year ago (unknown reason per patient) who presents with left chest pains. Chest x-ray read as large left pneumothorax. Chest tube was placed and repeat chest x-ray showed no pneumothorax. Scheduled to go to undergo VATS -Acute hypoxic respiratory failure due to pneumothorax: Continue oxygen -Recurrent left pneumothorax: CT surgery following, scheduled for VATS today -Tobacco dependency: Counseling on cessation done, patient mentions that she has reduced her smoking considerably after her first pneumothorax last year but I told her she needs to completely stop smoking cigarettes -DVT prophylaxis: Subcutaneous Lovenox ordered by Dr. Hart -Hypokalemia: Replace recheck in a.m. History Interval history: Patient seen and examined. Follow up on current diagnosis/sob. Overnight uneventful. No n/v or severe headaches. Imaging, old records, testing, labs, nursing notes reviewed. Hospitalist Physical - Physical exam Narrative exam: GEN: Thin frail, NAD, AWAKE, ALERT, ORIENTATED x 3 HEENT: NCAT, PERRL, EOMI, OP CLEAR NECK: SUPPLE, NO THYROMEGALY, NO JVD, NO LAD CVS: RRR, NORMAL S1S2 LUNGS/CHEST: Reduced breath sounds on the left, NORMAL CHEST EXPANSION B, adequate AIR ENTRY B ABD: SOFT, NTND, GBS, NO REBOUND OR GUARDING EXT/SKIN: NO SIGNIFICANT EDEMA OR RASH MSK: FROM X 4 EXTREMITIES NEURO: CN 2-12 GROSSLY INTACT, NO FOCAL DEFICITS PSY: CALM - Constitutional Vitals: Temp Pulse Resp BP Pulse Ox 99 F 63 16 110/67 98 01/21/17 11:50 01/21/17 11:50 01/21/17 11:50 01/21/17 11:50 01/21/17 11:50 General appearance: Present: well-nourished Results - Labs CBC & Chem 7: 01/21/17 04:32 01/21/17 04:32 Labs: Laboratory Last Values WBC 7.0 K/mm3 (4.5-11.0) 01/21/17 04:32 RBC 3.56 M/mm3 (3.65-5.03) L 01/21/17 04:32 Hgb 10.6 gm/dl (10.1-14.3) 01/21/17 04:32 Hct 31.9 % (30.3-42.9) 01/21/17 04:32 MCV 90 fl (79-97) 01/21/17 04:32 MCH 30 pg (28-32) 01/21/17 04:32 MCHC 33 % (30-34) 01/21/17 04:32 RDW 15.8 % (13.2-15.2) H 01/21/17 04:32 Plt Count 237 K/mm3 (140-440) 01/21/17 04:32 Lymph % (Auto) 22.4 % (13.4-35.0) 01/21/17 04:32 Becker % (Auto) 7.4 % (0.0-7.3) H 01/21/17 04:32 Eos % (Auto) 3.9 % (0.0-4.3) 01/21/17 04:32 Baso % (Auto) 0.6 % (0.0-1.8) 01/21/17 04:32 Lymph # 1.6 K/mm3 (1.2-5.4) 01/21/17 04:32 Becker # 0.5 K/mm3 (0.0-0.8) 01/21/17 04:32 Eos # 0.3 K/mm3 (0.0-0.4) 01/21/17 04:32 Baso # 0.0 K/mm3 (0.0-0.1) 01/21/17 04:32 Seg Neutrophils % 65.7 % (40.0-70.0) 01/21/17 04:32 Seg Neutrophils # 4.6 K/mm3 (1.8-7.7) 01/21/17 04:32 PT 13.1 Sec. (12.2-14.9) 01/21/17 04:32 INR 1.00 (0.87-1.13) 01/21/17 04:32 POC ABG pH 7.443 (7.35-7.45) 01/19/17 20:56 POC ABG pCO2 44.3 (35-45) 01/19/17 20:56 POC ABG pO2 145 (80-105) H 01/19/17 20:56 POC ABG HCO3 30.3 01/19/17 20:56 POC ABG Total CO2 32 01/19/17 20:56 POC ABG O2 Sat 99 01/19/17 20:56 POC ABG Base Excess 6 01/19/17 20:56 FiO2 32 % 01/19/17 20:56 Sodium 139 mmol/L (137-145) 01/21/17 04:32 Potassium 3.5 mmol/L (3.6-5.0) L 01/21/17 04:32 Chloride 100.8 mmol/L (98-107) 01/21/17 04:32 Carbon Dioxide 24 mmol/L (22-30) 01/21/17 04:32 Anion Gap 18 mmol/L 01/21/17 04:32 BUN 6 mg/dL (7-17) L 01/21/17 04:32 Creatinine 0.6 mg/dL (0.7-1.2) L 01/21/17 04:32 Estimated GFR > 60 ml/min 01/21/17 04:32 BUN/Creatinine Ratio 10.00 % 01/21/17 04:32 Glucose 76 mg/dL (65-100) 01/21/17 04:32 Calcium 8.4 mg/dL (8.4-10.2) 01/21/17 04:32 Troponin T < 0.010 ng/mL (0.00-0.029) 01/18/17 05:04 TSH 0.804 mlU/mL (0.270-4.200) 01/20/17 13:31 Free T4 1.37 ng/dL (0.76-1.46) 01/20/17 13:31
[2017-01-21] MEDS ORDERED: DILAUDID ONE (14:37)
[2017-01-21] MEDS ORDERED: ePHEDrine SULFATE ONE (14:50)
--- NOTE | 2017-01-21 15:08 | Post Operative Note ---
Pre-op diagnosis: Recurrent left pneumothorax Post-op diagnosis: same Findings: small ruptured blebs left upper lobe Procedure: Left VATS, multiple wedge resections left upper lobe, mechanical pleurodesis, Anesthesia: GETA Surgeon: COURT WATT Embedded Systems Engineer: SARA MALDONADO Estimated blood loss: other (200cc) Specimen disposition: to lab Condition: stable Disposition: floor
[2017-01-21] MEDS ORDERED: MORPHINE ONE (15:27)
--- NOTE | 2017-01-21 16:37 | XRay Report ---
PORTABLE CHEST INDICATION: Chest tube placement. COMPARISON: 4:07 PM, 01/18/2017 FINDINGS: Portable, frontal chest radiograph demonstrates interval small bore left chest catheter replacement by a large bore tube in similar course with its tip near the apex. No pneumothorax. Left apical hazy opacity with small surgical clips now noted. Left mid to lower lung scarring or atelectasis may also be present, though slightly improved. Stable cardiomediastinal silhouette. No large pleural effusions or CHF. EKG leads. Intact bones. CONCLUSION: Interval left hemithorax changes without evidence of a pneumothorax, as described. Please correlate. Thank you for the opportunity to participate in this patient's care.
[2017-01-21] MEDS: PERCOCET 5/325 PO PRN (18:50)
--- NOTE | 2017-01-21 23:24 | Operative Report ---
PREOPERATIVE DIAGNOSIS: Recurrent left pneumothorax. POSTOPERATIVE DIAGNOSIS: Recurrent left pneumothorax. OPERATIVE FINDINGS: Compatible small rupture blebs in the left upper lobe. PROCEDURE: Left video-assisted thoracoscopy with multiple wedge resections of the left upper lobe and mechanical pleurodesis. A 28-Mongolian chest tube was used. PROCEDURE: Under general with double lumen endotracheal tube. SURGEON: Praful Giron MD DUBBING MACHINE OPERATOR: Davis Mixon MD BLOOD LOSS: Around 200 mL. SPECIMEN: Consisted of the wedge resections, which were sent to lab. DISPOSITION: Stable, sent to the floor. Chest x-ray is pending at the time of this dictation. DESCRIPTION OF PROCEDURE: After informed consent, the patient received IV antibiotics and had compression stockings in place. She was induced under general anesthesia per Anesthesia with a double lumen endotracheal tube and placement confirmed by flexible bronchoscopy. Once this was accomplished, she was turned in a right lateral decubitus position with an axillary roll to protect the axillary contents on a beanbag and then sterilely prepped and draped. An Ioban drape was used. I raised a skin wheal below the old chest tube site, which had been discontinued just prior to sterilely prepping and draping her and made a small incision with an 11 blade. I placed a 5 mm port under direct visualization with a 30-degree 5 mm camera and all the other ports were placed under direct visualization with the scope. In a like fashion, a 5 mm port was placed on the posterior imaginary thoracotomy line and then a 12 mm port was placed on the midaxillary line, all under direct visualization with the scope. Once this was accomplished, it was readily apparent that there was a large vascular adhesion in the apex posteriorly and anterior-posterior portion of the left upper lobe. I very carefully dissected it with a Kitner dissector and then used the J hook. It was extremely vascular kind of a condensation of the visceral and parietal pleura. It bled somewhat. I applied locally electrocautery and then I fired an endoluminal stapler cartridge across the base of the lung just below the area of the adhesion. Once this was accomplished, there continued to be some oozing in the area. I applied three 5 mm clips, which was unsuccessful and then I cauterized it selectively with the J hook. This was still unsuccessful and it continued to ooze a bit, so I placed some Gelfoam and Surgicel directly over it and point application of pressure with a Kitner dissector, eventually it stopped. I then washed out the area and very carefully examined to see if there is any further evidence of bleeding; there was not. I applied a Ray-Orion sponge which was of course removed prior to closure to facilitate compression and equal distribution of compression over the bleeding area. Once I was satisfied, it was not bleeding then I examined the left upper and left lower lobe in their entirety utilizing the 5 mm 30-degree scope. There was one area suspicious for small blebs and I fired endoluminal stapler across it and sent it also for permanent pathology. I did not see any other bulla. I took down the inferior pulmonary ligament thus bringing the left lower lobe and then I ventilated the lung selectively, I did not see or discern any air leak. I washed out the chest with fluid to remove any blood or debris and then I withdrew the scopes under direct visualization with the scope. There was no bleeding from the anterior-posterior chest wall and then I let all the CO2 egress from the chest. I used a total pressure of 27 during the case and I placed a 28-Mongolian chest tube through the same incision on the left midaxillary line with placement in the apex. I secured it with heavy silk stay sutures. I partially closed the wound using the port site, the 12 mm port site, with interrupted 3-0 Vicryls and 4-0 Monocryl for skin. I closed the two 5 mm port sites with 4-0 Monocryl. Sterile dressing was applied. The patient was transferred to recovery room in stable condition with estimated blood loss was 200 mL. The sponge and needle count was correct x2 at the completion of the procedure. JOB# [id number] RICKIE/AXEL
--- NOTE | 2017-01-21 23:47 | Operative Report ---
PREOPERATIVE DIAGNOSIS: Recurrent left pneumothorax. POSTOPERATIVE DIAGNOSIS: Recurrent left pneumothorax. OPERATIVE FINDINGS: Consisted of small ruptured blebs in the anteromedial aspect of the left upper lobe and significant adhesion in the left upper lobe. PROCEDURE: Left video-assisted thoracoscopy with multiple wedge resections of the left upper lobe and mechanical pleurodesis. SURGEON: Praful Giron M.D. LEVEL VIAL INSPECTOR AND TESTER: Dr. Davis Mixon. ANESTHESIA: General. ESTIMATED BLOOD LOSS: About 200 mL. SPECIMEN: Sent to the lab. CONDITION: Stable. DISPOSITION: To the floor. DESCRIPTION OF PROCEDURE: After informed consent, the patient was brought to the operating room, induced under general anesthesia. She received IV antibiotics and compression stockings in place. She was then positioned in a right lateral decubitus position on a beanbag with an axillary roll to protect the axillary contents. She was sterilely prepped and draped. Prior to this, the previously placed chest tube was removed. A double lumen endotracheal tube had been placed per anesthesia with placement confirmed by flexible bronchoscopy. The left lung was not ventilated and the left chest tube was removed. She was then sterilely prepped and draped with an Ioban drape. I raised a skin wheal just 2 cm below the previous chest tube insertion site. I made a small incision with the 11 scalpel. I then tunneled a 5 mm port under direct visualization with a 5 mm 30-degree camera. DICTATION ENDS HERE. JOB# [id number] RICKIE/AXEL
[2017-01-22] MEDS: PERCOCET 5/325 PO PRN ×4 (00:43→20:13)
[2017-01-22] MEDS: MORPHINE IV PRN ×5 (03:57→21:51)
[2017-01-22 05:03] LABS: Hematocrit 32.5 % (30.3-42.9); Hemoglobin 10.7 gm/dl (10.1-14.3); Mean Corpuscular HGB Conc 33 % (30-34); Mean Corpuscular Hemoglobin 30 pg (28-32); Mean Corpuscular Volume 89 fl (79-97); Platelet Count 249 K/mm3 (140-440); Red Blood Count 3.64 M/mm3 (3.65-5.03); Red Cell Distribution Width 16.1 % (13.2-15.2); White Blood Count 11.4 K/mm3 (4.5-11.0)
[2017-01-22 05:26] LABS: Alanine Aminotransferase 7 units/L (7-56); Albumin 3.3 g/dL (3.9-5); Albumin/Globulin Ratio 1.1 %; Alkaline Phosphatase 46 units/L (35-129); Anion Gap 17 mmol/L; Blood Urea Nitrogen 7 mg/dL (7-17); Calcium 8.7 mg/dL (8.4-10.2); Carbon Dioxide 27 mmol/L (22-30); Chloride 99.9 mmol/L (98-107); Glucose 103 mg/dL (65-100); Potassium 4.4 mmol/L (3.6-5.0); Sodium 139 mmol/L (137-145); Total Protein 6.2 g/dL (6.3-8.2)
--- NOTE | 2017-01-22 09:08 | Event Note ---
Date: 01/22/17 POD 1 s/p L VATS,wedge resection, mech pleurodesis, VSS AF c/o incisional pain, min CT output, CXR, CBC pending, I will transfer patient to surgical floor , continue CT to suction.
--- NOTE | 2017-01-22 09:33 | XRay Report ---
AP CHEST: HISTORY: Followup left pneumothorax, left chest tube placement The left chest tube is unchanged since yesterday's exam. No recurrent or residual left pneumothorax is appreciated. There is slight increase in left axillary subcutaneous emphysema. The lungs are generally clear. Heart size is at the upper limits of normal. IMPRESSION: No recurrent left pneumothorax is detected.
[2017-01-22 10:41] LABS: Basophils % (Auto) 0.7 % (0.0-1.8); Eosinophils % (Auto) 1.4 % (0.0-4.3); Hematocrit 30.4 % (30.3-42.9); Hemoglobin 9.9 gm/dl (10.1-14.3); Mean Corpuscular HGB Conc 33 % (30-34); Mean Corpuscular Hemoglobin 30 pg (28-32); Mean Corpuscular Volume 90 fl (79-97); Platelet Count 255 K/mm3 (140-440); Red Blood Count 3.37 M/mm3 (3.65-5.03); Red Cell Distribution Width 15.9 % (13.2-15.2); White Blood Count 11.1 K/mm3 (4.5-11.0)
--- NOTE | 2017-01-22 13:54 | Progress Note ---
Assessment and Plan - Patient Problems (1) Left sided chest pain Current Visit: Yes Status: Acute Plan to address problem: - adviced to call for analegesics to prevent pain so she can breathe deep and prevent splinting / atelectasis - will order incentive spirometry - due to pneumothorax and now chest tube (2) Spontaneous pneumothorax Current Visit: Yes Status: Acute Plan to address problem: - s/p VATS with wedge resections and pleurodesis - added incentive spirometry - analgesia - chest tube without significant leacks - management per surgeon (3) Anemia Current Visit: Yes Status: Acute Qualifiers: Anemia type: A Iron deficiency anemia type: I Vitamin B12 deficiency anemia type: V Folate deficiency anemia type: F Bone marrow failure anemia type: B Hemolytic anemia type: H Other causes of anemia: O Chronic kidney disease stage: C Plan to address problem: - new this admission - normocytic - likely ABLA component - follow clinically - prn CBH / H&H (4) Discharge planning issues Current Visit: Yes Status: Acute Plan to address problem: - ok to transfer out of ICU Subjective Date of service: 01/22/17 Principal diagnosis: Acute "spontaneous" pneumothorax; s/p VATS with pleurodesis Interval history: Seen and examined at bedside; 24 hour events reviewed; nursing and respiratory care staff consulted; no adverse overnight events reported to me; resting peacefully in bed; complains of pleuritic chest pains at chest tube insertion site and not taking deep breaths; overall no hemoptysis and breathing easier Objective Vital Signs - 12hr 01/22/17 01/22/17 01/22/17 02:00 02:10 02:20 Temperature Pulse Rate 77 77 77 Respiratory 18 15 14 Rate Blood Pressure 88/46 88/46 89/50 O2 Sat by Pulse 93 94 97 Oximetry 01/22/17 01/22/17 01/22/17 02:30 02:40 02:50 Temperature Pulse Rate 68 70 67 Respiratory 15 14 14 Rate Blood Pressure 108/60 108/60 103/65 O2 Sat by Pulse 94 97 98 Oximetry 01/22/17 01/22/17 01/22/17 03:00 03:10 03:20 Temperature Pulse Rate 68 71 65 Respiratory 16 17 17 Rate Blood Pressure 98/60 98/60 98/57 O2 Sat by Pulse 97 98 97 Oximetry 01/22/17 01/22/17 01/22/17 03:27 03:30 03:40 Temperature 99 F Pulse Rate 67 75 Respiratory 15 17 Rate Blood Pressure 103/65 103/65 O2 Sat by Pulse 98 100 Oximetry 01/22/17 01/22/17 01/22/17 03:43 03:50 04:00 Temperature Pulse Rate 69 68 Respiratory 18 18 12 Rate Blood Pressure 99/67 99/67 O2 Sat by Pulse 98 96 Oximetry 01/22/17 01/22/17 01/22/17 04:10 04:20 04:30 Temperature Pulse Rate 73 84 73 Respiratory 15 18 20 Rate Blood Pressure 99/67 111/62 106/65 O2 Sat by Pulse 98 97 98 Oximetry 01/22/17 01/22/17 01/22/17 04:40 04:50 05:00 Temperature Pulse Rate 67 72 91 H Respiratory 17 20 22 Rate Blood Pressure 106/65 112/69 77/40 O2 Sat by Pulse 98 100 95 Oximetry 01/22/17 01/22/17 01/22/17 05:10 05:20 05:30 Temperature Pulse Rate 73 69 72 Respiratory 21 17 18 Rate Blood Pressure 77/40 122/70 130/72 O2 Sat by Pulse 99 100 100 Oximetry 01/22/17 01/22/17 01/22/17 05:40 05:50 06:00 Temperature Pulse Rate 65 68 77 Respiratory 19 19 24 Rate Blood Pressure 130/72 119/69 110/74 O2 Sat by Pulse 100 100 98 Oximetry 01/22/17 01/22/17 01/22/17 06:10 06:20 06:30 Temperature Pulse Rate 67 85 81 Respiratory 22 22 19 Rate Blood Pressure 110/74 112/72 102/57 O2 Sat by Pulse 100 97 97 Oximetry 01/22/17 01/22/17 01/22/17 06:40 06:50 07:00 Temperature Pulse Rate 73 65 64 Respiratory 20 21 16 Rate Blood Pressure 102/57 107/68 111/68 O2 Sat by Pulse 98 100 98 Oximetry 01/22/17 01/22/17 01/22/17 07:10 07:20 07:30 Temperature Pulse Rate 66 73 73 Respiratory 15 16 14 Rate Blood Pressure 111/68 106/65 111/55 O2 Sat by Pulse 99 98 96 Oximetry 01/22/17 01/22/17 01/22/17 07:40 07:50 08:00 Temperature 98.5 F Pulse Rate 64 76 69 Respiratory 15 19 16 Rate Blood Pressure 111/55 106/65 111/61 O2 Sat by Pulse 99 97 96 Oximetry 01/22/17 09:06 Temperature Pulse Rate Respiratory Rate Blood Pressure O2 Sat by Pulse 97 Oximetry Constitutional: no acute distress, alert Eyes: non-icteric ENT: oropharynx moist Neck: supple, no lymphadenopathy Effort: mildly labored Ascultation: Left: diminished breath sounds (at chest tube site; with scant rhonchi here), Bilateral: clear Cardiovascular: regular rate and rhythm Gastrointestinal: normoactive bowel sounds, soft, non-tender, non-distended Integumentary: normal Extremities: no cyanosis, no edema, pulses normal, no ischemia or petechiae Neurologic: normal mental status, non-focal exam, pupils equal and round, CN II- XII normal Psychiatric: mood appropriate, affect normal CBC and BMP: 01/22/17 10:15 01/22/17 04:08 ABG, PT/INR, D-dimer: ABG POC ABG pH 7.443 (7.35-7.45) 01/19/17 20:56 POC ABG pCO2 44.3 (35-45) 01/19/17 20:56 POC ABG pO2 145 (80-105) H 01/19/17 20:56 POC ABG HCO3 30.3 01/19/17 20:56 POC ABG Total CO2 32 01/19/17 20:56 POC ABG O2 Sat 99 01/19/17 20:56 PT/INR, D-dimer PT 13.1 Sec. (12.2-14.9) 01/21/17 04:32 INR 1.00 (0.87-1.13) 01/21/17 04:32 Abnormal lab findings: Abnormal Labs 01/19/17 01/19/17 01/19/17 04:18 04:18 20:56 WBC RBC Hgb RDW 16.2 H Gage % (Auto) Gage # Seg Neutrophils % 77.7 H Seg Neutrophils # POC ABG pO2 145 H Potassium BUN 5 L Creatinine 0.5 L Glucose POC Glucose Calcium 8.3 L Total Protein Albumin 01/21/17 01/21/17 01/21/17 04:32 04:32 23:57 WBC RBC 3.56 L Hgb RDW 15.8 H Gage % (Auto) 7.4 H Gage # Seg Neutrophils % Seg Neutrophils # POC ABG pO2 Potassium 3.5 L BUN 6 L Creatinine 0.6 L Glucose POC Glucose 150 H Calcium Total Protein Albumin 01/22/17 01/22/17 01/22/17 04:08 04:08 10:15 WBC 11.4 H 11.1 H RBC 3.64 L 3.37 L Hgb 9.9 L RDW 16.1 H 15.9 H Gage % (Auto) 8.8 H Gage # 1.0 H Seg Neutrophils % 75.0 H Seg Neutrophils # 8.3 H POC ABG pO2 Potassium BUN Creatinine Glucose 103 H POC Glucose Calcium Total Protein 6.2 L Albumin 3.3 L Chest x-ray: report reviewed
--- NOTE | 2017-01-22 14:55 | Progress Note ---
Assessment and Plan Assessment and plan: Patient is a 41-year-old woman history of hypothyroidism, thyroid nodule since 2016 and prior pneumothorax a year ago (unknown reason per patient) who presents with left chest pains. Chest x-ray read as large left pneumothorax. Chest tube was placed and repeat chest x-ray showed no pneumothorax. -Acute hypoxic respiratory failure due to pneumothorax: Continue oxygen, Pulmonology is also following. -Recurrent left pneumothorax: CT surgery following, scheduled for VATS 01/21/17, managed by Dr. Giron -Tobacco dependency: Counseling on cessation done, patient mentions that she has reduced her smoking considerably after her first pneumothorax last year but I told her she needs to completely stop smoking cigarettes -DVT prophylaxis: Subcutaneous Lovenox ordered by Dr. Hart -Hypokalemia: Replace recheck in a.m. per Dr. Giron, "Date: 01/22/17, POD 1 s/p L VATS,wedge resection, mech pleurodesis, VSS AF c/o incisional pain, min CT output, CXR, CBC pending, I will transfer patient to surgical floor , continue CT to suction." Disposition per Dr. Giron. History Interval history: Patient seen and examined. Follow up on current diagnosis/sob. Overnight uneventful. No n/v or severe headaches. Imaging, old records, testing, labs, nursing notes reviewed. No new c/o or issues. Hospitalist Physical - Physical exam Narrative exam: GEN: Thin frail, NAD, AWAKE, ALERT, ORIENTATED x 3 HEENT: NCAT, PERRL, EOMI, OP CLEAR NECK: SUPPLE, NO THYROMEGALY, NO JVD, NO LAD CVS: RRR, NORMAL S1S2 LUNGS/CHEST: Reduced breath sounds on the left, NORMAL CHEST EXPANSION B, adequate AIR ENTRY B, chest tube present ABD: SOFT, NTND, GBS, NO REBOUND OR GUARDING EXT/SKIN: NO SIGNIFICANT EDEMA OR RASH MSK: FROM X 4 EXTREMITIES NEURO: CN 2-12 GROSSLY INTACT, NO FOCAL DEFICITS PSY: CALM - Constitutional Vitals: Temp Pulse Resp BP Pulse Ox 98.5 F 75 20 117/72 97 01/22/17 08:00 01/22/17 14:00 01/22/17 14:00 01/22/17 14:00 01/22/17 14:00 General appearance: Present: well-nourished Results - Labs CBC & Chem 7: 01/22/17 10:15 01/22/17 04:08 Labs: Laboratory Last Values WBC 11.1 K/mm3 (4.5-11.0) H 01/22/17 10:15 RBC 3.37 M/mm3 (3.65-5.03) L 01/22/17 10:15 Hgb 9.9 gm/dl (10.1-14.3) L 01/22/17 10:15 Hct 30.4 % (30.3-42.9) 01/22/17 10:15 MCV 90 fl (79-97) 01/22/17 10:15 MCH 30 pg (28-32) 01/22/17 10:15 MCHC 33 % (30-34) 01/22/17 10:15 RDW 15.9 % (13.2-15.2) H 01/22/17 10:15 Plt Count 255 K/mm3 (140-440) 01/22/17 10:15 Lymph % (Auto) 14.1 % (13.4-35.0) 01/22/17 10:15 [place] % (Auto) 8.8 % (0.0-7.3) H 01/22/17 10:15 Eos % (Auto) 1.4 % (0.0-4.3) 01/22/17 10:15 Baso % (Auto) 0.7 % (0.0-1.8) 01/22/17 10:15 Lymph # 1.6 K/mm3 (1.2-5.4) 01/22/17 10:15 [place] # 1.0 K/mm3 (0.0-0.8) H 01/22/17 10:15 Eos # 0.2 K/mm3 (0.0-0.4) 01/22/17 10:15 Baso # 0.1 K/mm3 (0.0-0.1) 01/22/17 10:15 Seg Neutrophils % 75.0 % (40.0-70.0) H 01/22/17 10:15 Seg Neutrophils # 8.3 K/mm3 (1.8-7.7) H 01/22/17 10:15 PT 13.1 Sec. (12.2-14.9) 01/21/17 04:32 INR 1.00 (0.87-1.13) 01/21/17 04:32 POC ABG pH 7.443 (7.35-7.45) 01/19/17 20:56 POC ABG pCO2 44.3 (35-45) 01/19/17 20:56 POC ABG pO2 145 (80-105) H 01/19/17 20:56 POC ABG HCO3 30.3 01/19/17 20:56 POC ABG Total CO2 32 01/19/17 20:56 POC ABG O2 Sat 99 01/19/17 20:56 POC ABG Base Excess 6 01/19/17 20:56 FiO2 32 % 01/19/17 20:56 Sodium 139 mmol/L (137-145) 01/22/17 04:08 Potassium 4.4 mmol/L (3.6-5.0) D 01/22/17 04:08 Chloride 99.9 mmol/L (98-107) 01/22/17 04:08 Carbon Dioxide 27 mmol/L (22-30) 01/22/17 04:08 Anion Gap 17 mmol/L 01/22/17 04:08 BUN 7 mg/dL (7-17) 01/22/17 04:08 Creatinine 0.7 mg/dL (0.7-1.2) 01/22/17 04:08 Estimated GFR > 60 ml/min 01/22/17 04:08 BUN/Creatinine Ratio 10.00 % 01/22/17 04:08 Glucose 103 mg/dL (65-100) H 01/22/17 04:08 POC Glucose 105 (70-105) 01/22/17 04:51 Calcium 8.7 mg/dL (8.4-10.2) 01/22/17 04:08 Magnesium 1.70 mg/dL (1.7-2.3) 01/22/17 04:08 Total Bilirubin 0.50 mg/dL (0.1-1.2) 01/22/17 04:08 AST 20 units/L (5-40) 01/22/17 04:08 ALT 7 units/L (7-56) 01/22/17 04:08 Alkaline Phosphatase 46 units/L (35-129) 01/22/17 04:08 Troponin T < 0.010 ng/mL (0.00-0.029) 01/18/17 05:04 Total Protein 6.2 g/dL (6.3-8.2) L 01/22/17 04:08 Albumin 3.3 g/dL (3.9-5) L 01/22/17 04:08 Albumin/Globulin Ratio 1.1 % 01/22/17 04:08 Wpucx-5-[id number] 156 mg/dL (83-199) 01/19/17 08:30 TSH 0.804 mlU/mL (0.270-4.200) 01/20/17 13:31 Free T4 1.37 ng/dL (0.76-1.46) 01/20/17 13:31 Blood Type O POSITIVE 01/21/17 14:00 Antibody Screen TNR 01/21/17 14:00 WYATT Antibody Screen Negative 01/21/17 14:00
[2017-01-22] MEDS: ANCEF/NS 1 GM/50 ML 1 GM/50 ML BAG IV SCH ×2 (16:15→21:39)
[2017-01-22] MEDS: BENADRYL IV PRN (16:30)
[2017-01-23] MEDS: PERCOCET 5/325 PO PRN ×4 (00:42→23:00)
[2017-01-23] MEDS: MORPHINE IV PRN ×5 (02:25→22:00)
[2017-01-23] MEDS: ANCEF/NS 1 GM/50 ML 1 GM/50 ML BAG IV SCH ×2 (05:28→14:41)
[2017-01-23] MEDS: BENADRYL IV PRN ×2 (09:10→17:54)
--- NOTE | 2017-01-23 12:59 | Progress Note ---
Assessment and Plan - Patient Problems (1) Left sided chest pain Current Visit: Yes Status: Acute Plan to address problem: - again adviced to call for analegesics to prevent pain so she can breathe deep and prevent splinting / atelectasis - continue incentive spirometry - was due to pneumothorax and now chest tube - improved overall (2) Spontaneous pneumothorax Current Visit: Yes Status: Acute Plan to address problem: - s/p VATS with wedge resections and pleurodesis - added incentive spirometry - analgesia - chest tube without significant leacks - management per surgeon (3) Anemia Current Visit: Yes Status: Acute Qualifiers: Anemia type: A Iron deficiency anemia type: I Vitamin B12 deficiency anemia type: V Folate deficiency anemia type: F Bone marrow failure anemia type: B Hemolytic anemia type: H Other causes of anemia: O Chronic kidney disease stage: C Plan to address problem: - new this admission - normocytic - likely ABLA component - follow clinically - prn CBH / H&H (4) Discharge planning issues Current Visit: Yes Status: Acute Plan to address problem: - home after chest tube discontinued Subjective Date of service: 01/23/17 Principal diagnosis: Acute "spontaneous" pneumothorax; s/p VATS with pleurodesis Interval history: Seen and examined at bedside; 24 hour events reviewed; nursing and respiratory care staff consulted; no adverse overnight events reported to me; resting in bed ; still with some chest pains at chest tube site; no N/V/F/C; using incentive spirometer Objective Vital Signs - 12hr 01/23/17 01/23/17 01/23/17 08:00 08:36 09:10 Temperature 98.3 F Pulse Rate 69 Respiratory 16 17 16 Rate Blood Pressure 117/66 O2 Sat by Pulse 99 Oximetry 01/23/17 01/23/17 09:40 12:16 Temperature Pulse Rate Respiratory 16 15 Rate Blood Pressure O2 Sat by Pulse Oximetry Constitutional: no acute distress, alert Eyes: non-icteric ENT: oropharynx moist Neck: supple, no lymphadenopathy Effort: mildly labored Ascultation: Left: diminished breath sounds (at chest tube site; with scant rhonchi here), Bilateral: clear Cardiovascular: regular rate and rhythm Gastrointestinal: normoactive bowel sounds, soft, non-tender, non-distended Integumentary: normal Extremities: no cyanosis, no edema, pulses normal, no ischemia or petechiae Neurologic: normal mental status, non-focal exam, pupils equal and round, CN II- XII normal Psychiatric: mood appropriate, affect normal CBC and BMP: 01/22/17 10:15 01/22/17 04:08 ABG, PT/INR, D-dimer: ABG POC ABG pH 7.443 (7.35-7.45) 01/19/17 20:56 POC ABG pCO2 44.3 (35-45) 01/19/17 20:56 POC ABG pO2 145 (80-105) H 01/19/17 20:56 POC ABG HCO3 30.3 01/19/17 20:56 POC ABG Total CO2 32 01/19/17 20:56 POC ABG O2 Sat 99 01/19/17 20:56 PT/INR, D-dimer PT 13.1 Sec. (12.2-14.9) 01/21/17 04:32 INR 1.00 (0.87-1.13) 01/21/17 04:32 Abnormal lab findings: Abnormal Labs 01/19/17 01/19/17 01/19/17 04:18 04:18 20:56 WBC RBC Hgb RDW 16.2 H [place] % (Auto) [place] # Seg Neutrophils % 77.7 H Seg Neutrophils # POC ABG pO2 145 H Potassium BUN 5 L Creatinine 0.5 L Glucose POC Glucose Calcium 8.3 L Total Protein Albumin 01/21/17 01/21/17 01/21/17 04:32 04:32 23:57 WBC RBC 3.56 L Hgb RDW 15.8 H [place] % (Auto) 7.4 H [place] # Seg Neutrophils % Seg Neutrophils # POC ABG pO2 Potassium 3.5 L BUN 6 L Creatinine 0.6 L Glucose POC Glucose 150 H Calcium Total Protein Albumin 01/22/17 01/22/17 01/22/17 04:08 04:08 10:15 WBC 11.4 H 11.1 H RBC 3.64 L 3.37 L Hgb 9.9 L RDW 16.1 H 15.9 H [place] % (Auto) 8.8 H [place] # 1.0 H Seg Neutrophils % 75.0 H Seg Neutrophils # 8.3 H POC ABG pO2 Potassium BUN Creatinine Glucose 103 H POC Glucose Calcium Total Protein 6.2 L Albumin 3.3 L 01/22/17 17:27 WBC RBC Hgb RDW [place] % (Auto) [place] # Seg Neutrophils % Seg Neutrophils # POC ABG pO2 Potassium BUN Creatinine Glucose POC Glucose 109 H Calcium Total Protein Albumin Chest x-ray: image reviewed
--- NOTE | 2017-01-23 14:03 | Progress Note ---
Subjective Narrative: seen for Dr Giron , alert responsive , no leak seen ,no specific problem , will see PRN Objective Vital Signs - 12hr 01/23/17 01/23/17 01/23/17 08:00 08:36 09:10 Temperature 98.3 F Pulse Rate 69 Respiratory 16 17 16 Rate Blood Pressure 117/66 O2 Sat by Pulse 99 Oximetry 01/23/17 01/23/17 09:40 12:16 Temperature Pulse Rate Respiratory 16 15 Rate Blood Pressure O2 Sat by Pulse Oximetry - Labs 01/22/17 10:15 01/22/17 04:08
--- NOTE | 2017-01-23 14:12 | Progress Note ---
Assessment and Plan Assessment and plan: Patient is a 41-year-old woman history of hypothyroidism, thyroid nodule since 2016 and prior pneumothorax a year ago (unknown reason per patient) who presents with left chest pains. Chest x-ray read as large left pneumothorax. Chest tube was placed and repeat chest x-ray showed no pneumothorax. -Acute hypoxic respiratory failure due to pneumothorax: Continue oxygen, Pulmonology is also following. -Recurrent left pneumothorax: CT surgery following, scheduled for VATS 01/21/17, managed by Dr. Giron -Tobacco dependency: Counseling on cessation done, patient mentions that she has reduced her smoking considerably after her first pneumothorax last year but I told her she needs to completely stop smoking cigarettes -DVT prophylaxis: Subcutaneous Lovenox ordered by Dr. Hart -Hypokalemia: Replace recheck in a.m. per Dr. Giron, "Date: 01/22/17, POD 1 s/p L VATS, wedge resection, mech pleurodesis, VSS AF c/o incisional pain, min CT output, CXR, CBC pending, I will transfer patient to surgical floor , continue CT to suction." Disposition per Dr. Giron, d/w Dr. Mixon who is covering, ?remove the chest tube. History Interval history: Patient seen and examined. Follow up on current diagnosis/sob. Overnight uneventful. No n/v or severe headaches. Imaging, old records, testing, labs, nursing notes reviewed. No new c/o or issues. Hospitalist Physical - Physical exam Narrative exam: GEN: Thin frail, NAD, AWAKE, ALERT, ORIENTATED x 3 HEENT: NCAT, PERRL, EOMI, OP CLEAR NECK: SUPPLE, NO THYROMEGALY, NO JVD, NO LAD CVS: RRR, NORMAL S1S2 LUNGS/CHEST: Reduced breath sounds on the left, NORMAL CHEST EXPANSION B, adequate AIR ENTRY B, chest tube present ABD: SOFT, NTND, GBS, NO REBOUND OR GUARDING EXT/SKIN: NO SIGNIFICANT EDEMA OR RASH MSK: FROM X 4 EXTREMITIES NEURO: CN 2-12 GROSSLY INTACT, NO FOCAL DEFICITS PSY: CALM - Constitutional Vitals: Temp Pulse Resp BP Pulse Ox 98.3 F 69 15 117/66 99 01/23/17 08:00 01/23/17 08:00 01/23/17 12:16 01/23/17 08:00 01/23/17 08:00 General appearance: Present: well-nourished Results - Labs CBC & Chem 7: 01/22/17 10:15 01/22/17 04:08 Labs: Laboratory Last Values WBC 11.1 K/mm3 (4.5-11.0) H 01/22/17 10:15 RBC 3.37 M/mm3 (3.65-5.03) L 01/22/17 10:15 Hgb 9.9 gm/dl (10.1-14.3) L 01/22/17 10:15 Hct 30.4 % (30.3-42.9) 01/22/17 10:15 MCV 90 fl (79-97) 01/22/17 10:15 MCH 30 pg (28-32) 01/22/17 10:15 MCHC 33 % (30-34) 01/22/17 10:15 RDW 15.9 % (13.2-15.2) H 01/22/17 10:15 Plt Count 255 K/mm3 (140-440) 01/22/17 10:15 Lymph % (Auto) 14.1 % (13.4-35.0) 01/22/17 10:15 [place] % (Auto) 8.8 % (0.0-7.3) H 01/22/17 10:15 Eos % (Auto) 1.4 % (0.0-4.3) 01/22/17 10:15 Baso % (Auto) 0.7 % (0.0-1.8) 01/22/17 10:15 Lymph # 1.6 K/mm3 (1.2-5.4) 01/22/17 10:15 [place] # 1.0 K/mm3 (0.0-0.8) H 01/22/17 10:15 Eos # 0.2 K/mm3 (0.0-0.4) 01/22/17 10:15 Baso # 0.1 K/mm3 (0.0-0.1) 01/22/17 10:15 Seg Neutrophils % 75.0 % (40.0-70.0) H 01/22/17 10:15 Seg Neutrophils # 8.3 K/mm3 (1.8-7.7) H 01/22/17 10:15 PT 13.1 Sec. (12.2-14.9) 01/21/17 04:32 INR 1.00 (0.87-1.13) 01/21/17 04:32 POC ABG pH 7.443 (7.35-7.45) 01/19/17 20:56 POC ABG pCO2 44.3 (35-45) 01/19/17 20:56 POC ABG pO2 145 (80-105) H 01/19/17 20:56 POC ABG HCO3 30.3 01/19/17 20:56 POC ABG Total CO2 32 01/19/17 20:56 POC ABG O2 Sat 99 01/19/17 20:56 POC ABG Base Excess 6 01/19/17 20:56 FiO2 32 % 01/19/17 20:56 Sodium 139 mmol/L (137-145) 01/22/17 04:08 Potassium 4.4 mmol/L (3.6-5.0) D 01/22/17 04:08 Chloride 99.9 mmol/L (98-107) 01/22/17 04:08 Carbon Dioxide 27 mmol/L (22-30) 01/22/17 04:08 Anion Gap 17 mmol/L 01/22/17 04:08 BUN 7 mg/dL (7-17) 01/22/17 04:08 Creatinine 0.7 mg/dL (0.7-1.2) 01/22/17 04:08 Estimated GFR > 60 ml/min 01/22/17 04:08 BUN/Creatinine Ratio 10.00 % 01/22/17 04:08 Glucose 103 mg/dL (65-100) H 01/22/17 04:08 POC Glucose 99 (70-105) 01/23/17 06:45 Calcium 8.7 mg/dL (8.4-10.2) 01/22/17 04:08 Magnesium 1.70 mg/dL (1.7-2.3) 01/22/17 04:08 Total Bilirubin 0.50 mg/dL (0.1-1.2) 01/22/17 04:08 AST 20 units/L (5-40) 01/22/17 04:08 ALT 7 units/L (7-56) 01/22/17 04:08 Alkaline Phosphatase 46 units/L (35-129) 01/22/17 04:08 Troponin T < 0.010 ng/mL (0.00-0.029) 01/18/17 05:04 Total Protein 6.2 g/dL (6.3-8.2) L 01/22/17 04:08 Albumin 3.3 g/dL (3.9-5) L 01/22/17 04:08 Albumin/Globulin Ratio 1.1 % 01/22/17 04:08 Ixian-9-Mduwtzrsufs 156 mg/dL (83-199) 01/19/17 08:30 TSH 0.804 mlU/mL (0.270-4.200) 01/20/17 13:31 Free T4 1.37 ng/dL (0.76-1.46) 01/20/17 13:31 Blood Type O POSITIVE 01/21/17 14:00 Antibody Screen TNR 01/21/17 14:00 WYATT Antibody Screen Negative 01/21/17 14:00
[2017-01-24] MEDS: ANCEF/NS 1 GM/50 ML 1 GM/50 ML BAG IV SCH ×2 (00:55→05:40)
[2017-01-24] MEDS: MORPHINE IV PRN ×3 (01:40→09:49)
--- NOTE | 2017-01-24 08:11 | XRay Report ---
AP CHEST: HISTORY: Followup left pneumothorax, recent thoracoscopy. The left chest tube is in essentially the same position when comparing to the exam 2 days ago. No recurrent left pneumothorax is visualized. Left apical sutures/scarring is noted. The lungs are clear otherwise. Normal heart and mediastinal structures. IMPRESSION: No acute cardiopulmonary process.
--- NOTE | 2017-01-24 08:38 | Event Note ---
Date: 01/24/17 POD 3 VSS AF ,will implement trial of water seal, if CXR OK can d/c CT and d/c patient home.
[2017-01-24 09:05] VITALS: BP 114/62
--- NOTE | 2017-01-24 09:35 | XRay Report ---
AP CHEST at 0917 hours: HISTORY: Followup pneumothorax, patient on waterseal Left chest tube is unchanged. No recurrent pneumothorax. No change is demonstrated since 0729 hours. IMPRESSION: No recurrent left pneumothorax.
--- NOTE | 2017-01-24 09:39 | Event Note ---
Date: 01/24/[address], CXR on water seal with no pneumothorax, CT d/lee, repeat CXR , if OK patient can be discharge home with some oral pain meds and follow up in my office in one week.
--- NOTE | 2017-01-24 09:44 | Discharge Summary ---
Providers - Providers Date of Admission: 01/18/17 01:39 Date of discharge: 01/24/17 Attending physician: HOMERO DONALD 01/20/17 07:38 Consult to Physician [CONS] Routine Consulting Provider: COURT WATT Reason For Exam: recurrent pneumothorax Place consult to:: cardiothoracic surgeon Notified:: office Phone number called:: [phone] Was contact made?: Yes If yes, spoke with:: doyle Time called:: 09:10 Primary care physician: DIRECTOR OF CHILD [employer]ELFARE SERVICES Hospitalization Reason for admission: recurrent left pneumothorax Condition: Fair Pertinent studies: CXR, CT chest, Procedures: Left VATS, mechanical pleurodesis, wedge resections of lung. Hospital course: Pt admitted to hospital with recurrent left PTX, Heimlich CT placed in ER, seen by Thoracic, second left sided PTX, taken to OR for Left VATS, wedge resection of lung, mech pleurodesis, admitted, maintained CT on suction x 72 hours, hemodyn stable, tolerated diet, water seal trial POD 3, CXR OK , no ptx, CT d/ lee. If CXR OK patient can be discharge home with some oral pain meds, f/u my office one week. Disposition: DC-01 TO HOME OR SELFCARE Time spent for discharge: 20min - Discharge Diagnoses (1) Pneumothorax, left Status: Acute Core Measure Documentation - Palliative Care Palliative Care/ Comfort Measures: Not Applicable - Core Measures Any of the following diagnoses?: none Exam - Constitutional Vitals: Temp Pulse Resp BP Pulse Ox 97.9 F 77 16 114/62 99 01/24/17 08:00 01/24/17 08:00 01/24/17 08:00 01/24/17 08:00 01/24/17 08:00 General appearance: Present: no acute distress, well-nourished - EENT Eyes: Present: PERRL ENT: hearing intact, clear oral mucosa - Neck Neck: Present: supple, normal ROM - Respiratory Respiratory effort: normal, other (incisions healed, no infection or drainage) - Cardiovascular Rhythm: regular Heart Sounds: Present: S1 & S2. Absent: rub, click - Extremities Extremities: no ischemia Peripheral Pulses: within normal limits - Abdominal General gastrointestinal: Present: soft, non-tender, non-distended, normal bowel sounds - Psychiatric Psychiatric: appropriate mood/affect, intact judgment & insight Plan Activity: no restrictions, advance as tolerated Weight Bearing Status: Full Weight Bearing Diet: regular Wound: open to air, other (remove chest dressing in 24 hours.) Follow up with: PRIMARY CARE, [Primary Care Provider] - 7 Days Prescriptions: oxyCODONE /ACETAMINOPHEN [Percocet 5/325 mg] 1 tab PO Q4H PRN #30 tablet PRN Reason: Pain, Moderate (4-6)
--- NOTE | 2017-01-24 10:01 | XRay Report ---
PORTABLE CHEST INDICATION: Chest tube removal. COMPARISON: 9:17 AM earlier today. FINDINGS: Portable, frontal chest radiograph, 9:46 AM, 01/24/2017 demonstrates interval left chest tube removal without definite pneumothorax. Left apical opacity with few surgical clips/densities again seen as also left axillary/upper chest wall subcutaneous emphysema. Clear remainder lungs. Normal cardiomediastinal silhouette. Intact bones. CONCLUSION: No evidence of pneumothorax following left chest tube removal, as described. Thank you for the opportunity to participate in this patient's care.
--- NOTE | 2017-01-24 10:20 | Discharge Summary ---
DISCHARGE DIAGNOSIS: Recurrent spontaneous left pneumothorax. Pertinent studies were chest x-ray and CT of the chest. PROCEDURES: She underwent a left video-assisted thoracoscopy, a mechanical pleurodesis and multiple wedge resections of her lung. HOSPITAL COURSE: This is a 41-year-old female who presented with recurrent left pneumothorax. A Heimlich chest tube was placed in the Emergency Room. She was seen by thoracic. Since this is the second left side pneumothorax she was taken to the operating room where she underwent an uneventful left video-assisted thoracoscopy, wedge resection of the blebs in the left upper lobe, mechanical pleurodesis and of course a chest tube was left. She was admitted to the ICU overnight, was hemodynamically stable with no evidence of bleeding. She was transferred to the floor. She tolerated regular diet with normal bowel function by the time of discharge. Her pain was well controlled with oral and IV pain medicine. Her chest tube was maintained on suction times 72 hours and then we implemented a trial of waterseal. She was taken off suction. The x-rays demonstrated complete reexpansion of the lung with no residual pneumothorax and as a result her chest tube was discontinued. She was instructed on wound care. I will see her in my office 1 week following discharge from the hospital. I gave her a prescription for Percocet. She was instructed on wound care and told that if she developed any further shortness of breath or chest pain to immediately return to the Emergency Room. JOB# [id number] RICKIE/AXEL
--- NOTE | 2017-01-24 11:47 | Progress Note ---
Assessment and Plan Assessment and plan: Patient is a 41-year-old woman history of hypothyroidism, thyroid nodule since 2016 and prior pneumothorax a year ago (unknown reason per patient) who presents with left chest pains. Chest x-ray read as large left pneumothorax. Chest tube was placed and repeat chest x-ray showed no pneumothorax. -Acute hypoxic respiratory failure due to pneumothorax: Continue oxygen, Pulmonology is also following. -Recurrent left pneumothorax: CT surgery following, scheduled for VATS 01/21/17, managed by Dr. Giron -Tobacco dependency: Counseling on cessation done, patient mentions that she has reduced her smoking considerably after her first pneumothorax last year but I told her she needs to completely stop smoking cigarettes -DVT prophylaxis: Subcutaneous Lovenox ordered by Dr. Hart -Hypokalemia: Replace recheck in a.m. per Dr. Giron, "Date: 01/22/17, POD 1 s/p L VATS, wedge resection, mech pleurodesis, VSS AF c/o incisional pain, min CT output, CXR, CBC pending, I will transfer patient to surgical floor , continue CT to suction." ?remove the chest tube today. Disposition per Dr. Giron History Interval history: Patient seen and examined. Follow up on current diagnosis/sob. Overnight uneventful. No n/v or severe headaches. Imaging, old records, testing, labs, nursing notes reviewed. No new c/o or issues. Hospitalist Physical - Physical exam Narrative exam: GEN: Thin frail, NAD, AWAKE, ALERT, ORIENTATED x 3 HEENT: NCAT, PERRL, EOMI, OP CLEAR NECK: SUPPLE, NO THYROMEGALY, NO JVD, NO LAD CVS: RRR, NORMAL S1S2 LUNGS/CHEST: Improved left breath sounds, NORMAL CHEST EXPANSION B, adequate AIR ENTRY B, chest tube present ABD: SOFT, NTND, GBS, NO REBOUND OR GUARDING EXT/SKIN: NO SIGNIFICANT EDEMA OR RASH MSK: FROM X 4 EXTREMITIES NEURO: CN 2-12 GROSSLY INTACT, NO FOCAL DEFICITS PSY: CALM - Constitutional Vitals: Temp Pulse Resp BP Pulse Ox 97.9 F 77 16 114/62 99 01/24/17 08:00 01/24/17 08:00 01/24/17 08:00 01/24/17 08:00 01/24/17 08:00 General appearance: Present: no acute distress, well-nourished Results - Labs CBC & Chem 7: 01/22/17 10:15 01/22/17 04:08 Labs: Laboratory Last Values WBC 11.1 K/mm3 (4.5-11.0) H 01/22/17 10:15 RBC 3.37 M/mm3 (3.65-5.03) L 01/22/17 10:15 Hgb 9.9 gm/dl (10.1-14.3) L 01/22/17 10:15 Hct 30.4 % (30.3-42.9) 01/22/17 10:15 MCV 90 fl (79-97) 01/22/17 10:15 MCH 30 pg (28-32) 01/22/17 10:15 MCHC 33 % (30-34) 01/22/17 10:15 RDW 15.9 % (13.2-15.2) H 01/22/17 10:15 Plt Count 255 K/mm3 (140-440) 01/22/17 10:15 Lymph % (Auto) 14.1 % (13.4-35.0) 01/22/17 10:15 [place] % (Auto) 8.8 % (0.0-7.3) H 01/22/17 10:15 Eos % (Auto) 1.4 % (0.0-4.3) 01/22/17 10:15 Baso % (Auto) 0.7 % (0.0-1.8) 01/22/17 10:15 Lymph # 1.6 K/mm3 (1.2-5.4) 01/22/17 10:15 [place] # 1.0 K/mm3 (0.0-0.8) H 01/22/17 10:15 Eos # 0.2 K/mm3 (0.0-0.4) 01/22/17 10:15 Baso # 0.1 K/mm3 (0.0-0.1) 01/22/17 10:15 Seg Neutrophils % 75.0 % (40.0-70.0) H 01/22/17 10:15 Seg Neutrophils # 8.3 K/mm3 (1.8-7.7) H 01/22/17 10:15 PT 13.1 Sec. (12.2-14.9) 01/21/17 04:32 INR 1.00 (0.87-1.13) 01/21/17 04:32 POC ABG pH 7.443 (7.35-7.45) 01/19/17 20:56 POC ABG pCO2 44.3 (35-45) 01/19/17 20:56 POC ABG pO2 145 (80-105) H 01/19/17 20:56 POC ABG HCO3 30.3 01/19/17 20:56 POC ABG Total CO2 32 01/19/17 20:56 POC ABG O2 Sat 99 01/19/17 20:56 POC ABG Base Excess 6 01/19/17 20:56 FiO2 32 % 01/19/17 20:56 Sodium 139 mmol/L (137-145) 01/22/17 04:08 Potassium 4.4 mmol/L (3.6-5.0) D 01/22/17 04:08 Chloride 99.9 mmol/L (98-107) 01/22/17 04:08 Carbon Dioxide 27 mmol/L (22-30) 01/22/17 04:08 Anion Gap 17 mmol/L 01/22/17 04:08 BUN 7 mg/dL (7-17) 01/22/17 04:08 Creatinine 0.7 mg/dL (0.7-1.2) 01/22/17 04:08 Estimated GFR > 60 ml/min 01/22/17 04:08 BUN/Creatinine Ratio 10.00 % 01/22/17 04:08 Glucose 103 mg/dL (65-100) H 01/22/17 04:08 POC Glucose 88 (70-105) 01/24/17 06:12 Calcium 8.7 mg/dL (8.4-10.2) 01/22/17 04:08 Magnesium 1.70 mg/dL (1.7-2.3) 01/22/17 04:08 Total Bilirubin 0.50 mg/dL (0.1-1.2) 01/22/17 04:08 AST 20 units/L (5-40) 01/22/17 04:08 ALT 7 units/L (7-56) 01/22/17 04:08 Alkaline Phosphatase 46 units/L (35-129) 01/22/17 04:08 Troponin T < 0.010 ng/mL (0.00-0.029) 01/18/17 05:04 Total Protein 6.2 g/dL (6.3-8.2) L 01/22/17 04:08 Albumin 3.3 g/dL (3.9-5) L 01/22/17 04:08 Albumin/Globulin Ratio 1.1 % 01/22/17 04:08 Bctbf-8-Slesavegwko 156 mg/dL (83-199) 01/19/17 08:30 TSH 0.804 mlU/mL (0.270-4.200) 01/20/17 13:31 Free T4 1.37 ng/dL (0.76-1.46) 01/20/17 13:31 Blood Type O POSITIVE 01/21/17 14:00 Antibody Screen TNR 01/21/17 14:00 WYATT Antibody Screen Negative 01/21/17 14:00
--- NOTE | 2017-01-24 11:54 | Progress Note ---
Assessment and Plan - Patient Problems (1) Left sided chest pain Current Visit: Yes Status: Acute Plan to address problem: - again adviced to call for analegesics to prevent pain so she can breathe deep and prevent splinting / atelectasis - continue incentive spirometry - was due to pneumothorax and now chest tube - improved overall (2) Spontaneous pneumothorax Current Visit: Yes Status: Acute Plan to address problem: - s/p VATS with wedge resections and pleurodesis - added incentive spirometry - analgesia - chest tube discontinued - outpatient f/up (3) Anemia Current Visit: Yes Status: Acute Qualifiers: Anemia type: A Iron deficiency anemia type: I Vitamin B12 deficiency anemia type: V Folate deficiency anemia type: F Bone marrow failure anemia type: B Hemolytic anemia type: H Other causes of anemia: O Chronic kidney disease stage: C Plan to address problem: - new this admission - normocytic - likely ABLA component - follow clinically - prn CBH / H&H (4) Discharge planning issues Current Visit: Yes Status: Acute Plan to address problem: - ok to discharge home - outpatient f/up - tobacco abstinence counselled Subjective Date of service: 01/24/17 Principal diagnosis: Acute "spontaneous" pneumothorax; s/p VATS with pleurodesis Interval history: Seen and examined at bedside; 24 hour events reviewed; nursing and respiratory care staff consulted; no adverse overnight events reported to me; chest tube discontinued; denies acute chest pains or increased SOB Objective Vital Signs - 12hr 01/24/17 08:00 Temperature 97.9 F Pulse Rate 77 Respiratory 16 Rate Blood Pressure 114/62 O2 Sat by Pulse 99 Oximetry Constitutional: no acute distress, alert Eyes: non-icteric ENT: oropharynx moist Neck: supple, no lymphadenopathy Effort: mildly labored Ascultation: Bilateral: clear Cardiovascular: regular rate and rhythm Gastrointestinal: normoactive bowel sounds, soft, non-tender, non-distended Integumentary: normal Extremities: no cyanosis, no edema, pulses normal, no ischemia or petechiae Neurologic: normal mental status, non-focal exam, pupils equal and round, CN II- XII normal Psychiatric: mood appropriate, affect normal CBC and BMP: 01/22/17 10:15 01/22/17 04:08 ABG, PT/INR, D-dimer: ABG POC ABG pH 7.443 (7.35-7.45) 01/19/17 20:56 POC ABG pCO2 44.3 (35-45) 01/19/17 20:56 POC ABG pO2 145 (80-105) H 01/19/17 20:56 POC ABG HCO3 30.3 01/19/17 20:56 POC ABG Total CO2 32 01/19/17 20:56 POC ABG O2 Sat 99 01/19/17 20:56 PT/INR, D-dimer PT 13.1 Sec. (12.2-14.9) 01/21/17 04:32 INR 1.00 (0.87-1.13) 01/21/17 04:32 Abnormal lab findings: Abnormal Labs 01/19/17 01/19/17 01/19/17 04:18 04:18 20:56 WBC RBC Hgb RDW 16.2 H [place] % (Auto) [place] # Seg Neutrophils % 77.7 H Seg Neutrophils # POC ABG pO2 145 H Potassium BUN 5 L Creatinine 0.5 L Glucose POC Glucose Calcium 8.3 L Total Protein Albumin 01/21/17 01/21/17 01/21/17 04:32 04:32 23:57 WBC RBC 3.56 L Hgb RDW 15.8 H [place] % (Auto) 7.4 H [place] # Seg Neutrophils % Seg Neutrophils # POC ABG pO2 Potassium 3.5 L BUN 6 L Creatinine 0.6 L Glucose POC Glucose 150 H Calcium Total Protein Albumin 01/22/17 01/22/17 01/22/17 04:08 04:08 10:15 WBC 11.4 H 11.1 H RBC 3.64 L 3.37 L Hgb 9.9 L RDW 16.1 H 15.9 H [place] % (Auto) 8.8 H [place] # 1.0 H Seg Neutrophils % 75.0 H Seg Neutrophils # 8.3 H POC ABG pO2 Potassium BUN Creatinine Glucose 103 H POC Glucose Calcium Total Protein 6.2 L Albumin 3.3 L 01/22/17 01/23/17 17:27 21:25 WBC RBC Hgb RDW [place] % (Auto) [place] # Seg Neutrophils % Seg Neutrophils # POC ABG pO2 Potassium BUN Creatinine Glucose POC Glucose 109 H 108 H Calcium Total Protein Albumin Chest x-ray: image reviewed
[2017-01-24] MEDS: PERCOCET 5/325 PO PRN (12:47)
== END 2017-01-24 15:20 | disposition home or self-care (01) | DRG 163 ==
LOC: ED 21:38 → 4A 01-18 01:39 → CC1 01-21 15:48 → 3A 01-22 15:37
PROVIDERS: ADMIT Internal Medicine; ATTEND Internal Medicine
PROC: 0W9B30Z Drainage of Left Pleural Cavity with Drainage Device, Percutaneous Approach (ICD-10-PCS; 2017-01-18)
PROC: 0BBG4ZZ Excision of Left Upper Lung Lobe, Percutaneous Endoscopic Approach (ICD-10-PCS; principal; 2017-01-21)
PROC: 4A033R1 Measurement of Arterial Saturation, Peripheral, Percutaneous Approach (ICD-10-PCS; 2017-01-21)
PROC: 0B5P3ZZ Destruction of Left Pleura, Percutaneous Approach (ICD-10-PCS; 2017-01-21)
DX: J93.83 Other pneumothorax (principal); J96.01 Acute respiratory failure with hypoxia; E87.6 Hypokalemia; D64.9 Anemia, unspecified; Z87.891 Personal history of nicotine dependence; Z82.49 Family history of ischemic heart disease and other diseases of the circulatory system; Z71.6 Tobacco abuse counseling
CPT/HCPCS: 36415; 36600; 71010; 71020; 71260; 80048; 80053; 81025; 82103; 82803; 82962; 83735; 84439; 84443; 84484; 85025; 85027; 85610; 86850; 86900; 86901; 88307; 93005; 93010; 94760; 96361; 96374; 96375; A4217; A4649; J0690; J1100; J1170; J1200; J1650; J1885; J2250; J2270; J2370; J2405; J2704; J2710; J3010; J3480; J7030; J7120; Q9967

== ENCOUNTER 2019-02-05 03:27 | Emergency (ER) | payer SELFPAY ==
[2019-02-05 03:33] VITALS: BP 113/73
--- NOTE | 2019-02-05 04:04 | XRay Report ---
Right hand-2 views INDICATION: Right hand injury. Acute generalized right hand pain after unspecified injury COMPARISON: None. IMPRESSION: No acute osseous or soft tissue abnormality. No significant DJD. Signer Name: Chu Youssef MD Signed: 02/05/2019 4:00 AM Workstation Name: [id number]
--- NOTE | 2019-02-05 05:38 | Emergency Department Report ---
ED Upper Extremity Inj HPI - General Chief Complaint: Extremity Injury, Upper Stated Complaint: RIGHT HAND PAIN Time Seen by Provider: 02/05/19 04:56 Source: patient Mode of arrival: Ambulatory Limitations: No Limitations - History of Present Illness Complaint: Injury to:: right, finger (right thumb ) Onset/Timin -: days(s) Other Extremity Injury: Fingers: Right (right thumb ) Handedness: right Place: home Severity scale (0 -10): 5 Improves With: none Worsens With: none Context: other ([place] ) Associated Symptoms: denies other symptoms - Related Data Previous Rx's Medication Instructions Recorded Last Taken Type oxyCODONE /ACETAMINOPHEN [Percocet 1 tab PO Q4H PRN #30 tablet 01/24/17 Unknown Rx 5/325 mg] Cyclobenzaprine [Flexeril] 10 mg PO TID PRN #30 tablet 02/05/19 Unknown Rx Naproxen [Naprosyn TAB] 500 mg PO BID PRN #30 tablet 02/05/19 Unknown Rx Allergies Allergy/AdvReac Type Severity Reaction Status Date / Time etomidate [From Amidate] AdvReac Anaphylaxis Verified 11/28/15 20:52 ED Review of Systems ROS: Stated complaint: RIGHT HAND PAIN Other details as noted in HPI Constitutional: denies: chills, fever Eyes: denies: eye pain, eye discharge, vision change ENT: denies: ear pain, throat pain Respiratory: denies: cough, shortness of breath, wheezing Cardiovascular: denies: chest pain, palpitations Endocrine: no symptoms reported Gastrointestinal: denies: abdominal pain, nausea, diarrhea Genitourinary: denies: urgency, dysuria, discharge Musculoskeletal: other (right hand and thumb pain ). denies: back pain, joint swelling, arthralgia Skin: denies: rash, lesions Neurological: denies: headache, weakness, paresthesias Psychiatric: denies: anxiety, depression Hematological/Lymphatic: denies: easy bleeding, easy bruising ED Past Medical Hx - Past Medical History Previous Medical History?: No Additional medical history: Spontaneous pneumothorax - Surgical History Past Surgical History?: Yes Additional Surgical History: Chest tube for spontaneous pneumothorax - Social History Smoking Status: Current Every Day Smoker Substance Use Type: None - Medications Home Medications: Home Medications Medication Instructions Recorded Confirmed Last Taken Type oxyCODONE /ACETAMINOPHEN [Percocet 1 tab PO Q4H PRN #30 tablet 01/24/17 Unknown Rx 5/325 mg] Cyclobenzaprine [Flexeril] 10 mg PO TID PRN #30 tablet 02/05/19 Unknown Rx Naproxen [Naprosyn TAB] 500 mg PO BID PRN #30 tablet 02/05/19 Unknown Rx ED Physical Exam - General Limitations: No Limitations General appearance: alert, in no apparent distress - Head Head exam: Present: atraumatic, normocephalic - Eye Eye exam: Present: normal appearance, EOMI Pupils: Present: normal accommodation - ENT ENT exam: Present: mucous membranes moist - Neck Neck exam: Present: normal inspection - Respiratory Respiratory exam: Present: normal lung sounds bilaterally. Absent: respiratory distress, stridor, chest wall tenderness - Cardiovascular Cardiovascular Exam: Present: regular rate, normal rhythm, normal heart sounds. Absent: systolic murmur, diastolic murmur, rubs, gallop - GI/Abdominal GI/Abdominal exam: Present: soft, normal bowel sounds. Absent: distended, tenderness, bruit, hernia - Rectal Rectal exam: Present: deferred - Extremities Exam Extremities exam: Present: normal inspection, full ROM, tenderness, normal capillary refill. Absent: pedal edema, joint swelling - Expanded Upper Extremity Exam Right Hand Wrist exam: Present: full ROM, tenderness (general hand and thumb tenderness no swelling no deformity ). Absent: swelling, abrasion, laceration, ecchymosis, deformity, crepidus, dislocation, erythema, amputation, nail avulsion, subungual hematoma Neuro motor exam: Present: wrist extension intact, thumb opposition intact, thumb IP flexion intact, thumb adduction intact, fingers 2-5 abduction intact Neurosensory exam: Present: 2-point discrimination, radial nerve intact, ulnar nerve intact, median nerve intact Vascular: Present: normal capillary refill, radial pulse, brachial pulse, ulnar pulse. Absent: pulse deficit radial art, pulse deficit ulnar art, pulse deficit brachial art - Back Exam Back exam: Present: normal inspection, full ROM. Absent: tenderness, CVA tenderness (R), CVA tenderness (L), muscle spasm, paraspinal tenderness, rash noted - Neurological Exam Neurological exam: Present: alert, oriented X3, CN II-XII intact, normal gait, reflexes normal. Absent: motor sensory deficit - Psychiatric Psychiatric exam: Present: normal affect, normal mood - Skin Skin exam: Present: warm, dry, intact, normal color. Absent: rash ED Course Vital Signs 02/05/19 03:31 Temperature 98.2 F Pulse Rate 85 Respiratory 18 Rate Blood Pressure 113/73 O2 Sat by Pulse 99 Oximetry ED Medical Decision Making - Radiology Data Radiology results: report reviewed, image reviewed Ordering Physician: MELANIE STEINBERG NP Date of Service: 02/05/19 Procedure(s): XR hand 2V RT Accession Number(s): [id number] cc: MELANIE STEINBERG NP Fluoro Time In Minutes: Right hand-2 views INDICATION: Right hand injury. Acute generalized right hand pain after unspecified injury COMPARISON: None. IMPRESSION: No acute osseous or soft tissue abnormality. No significant DJD. 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 Critical care attestation.: If time is entered above; I have spent that time in minutes in the direct care of this critically ill patient, excluding procedure time. ED Disposition Clinical Impression: Sprain of right thumb Qualifiers: Encounter type: initial encounter Sprain of finger site: unspecified site Qualified Code(s): S63.601A - Unspecified sprain of right thumb, initial encounter Disposition: TO HOME OR SELFCARE Is pt being admited?: No Does the pt Need Aspirin: No Condition: Stable Instructions: Finger Sprain (ED) Prescriptions: Cyclobenzaprine [Flexeril] 10 mg PO TID PRN #30 tablet PRN Reason: Muscle Spasm Naproxen [Naprosyn TAB] 500 mg PO BID PRN #30 tablet PRN Reason: pain Referrals: SURYA FUNEZ MD [Staff Physician] - 3-5 Days Forms: Work/School Release Form(ED) Time of Disposition: 05:46
== END 2019-02-05 05:53 | disposition home or self-care (01) ==
LOC: ED 03:27
DX: S63.601A Unspecified sprain of right thumb, initial encounter (principal); F17.200 Nicotine dependence, unspecified, uncomplicated; Z98.890 Other specified postprocedural states; Z79.899 Other long term (current) drug therapy; Z88.8 Allergy status to other drugs, medicaments and biological substances; X58.XXXA Exposure to other specified factors, initial encounter; Y93.89 Activity, other specified; Y92.098 Other place in other non-institutional residence as the place of occurrence of the external cause; Y99.8 Other external cause status
CPT/HCPCS: 99283